=== PATIENT | male | born 1950 | race Hispanic/Latino ===

== ENCOUNTER 2019-01-14 22:39 | Inpatient (IN) | payer MEDICARE, BC ==
--- NOTE | 2019-01-14 22:49 | ED PDOC ---
Arrival/HPI - General Chief Complaint: Respiratory Distress Time Seen by Provider: 01/14/19 22:40 Historian: Patient, Spouse, EMS - History of Present Illness Narrative History of Present Illness (Text): 01/14/19 22:48 Ghulam Pierson is a 68 year old male, whose past medical history includes rib fracture, punctured pung/pneumothorax, tracheostomy, and hypertension, who presents to the ED brought in by ALS for severe respiratory distress. As per EMS, patient began experiencing progressively worsening shortness of breath 1 hours prior to arrival. Patient was placed on BiPAP and was administered Nitroglycerin IV en route to the Emergency department notes patient has a history of pneumothorax and intubation in the past. Limited HPI and ROS secondary to patient's respiratory distress. PMD: Dr. Fajardo Symptom Onset: Gradual Symptom Course: Unchanged Activities at Onset: Light Context: Home Past Medical History - Provider Review Nursing Documentation Reviewed: Yes Primary Care Provider: Alonso Fajardo - Infectious Disease Hx of Infectious Diseases: None - Cardiac Hx Cardiac Disorders: Yes Hx Hypertension: Yes Other/Comment: enlarged heart - Pulmonary Hx Respiratory Disorders: No Other/Comment: fell, rib fx x5 and pneumon/hemothorax. trach 1 year ago - Neurological Hx Neurological Disorder: No - HEENT Hx HEENT Disorder: No - Renal Hx Renal Disorder: No - Endocrine/Metabolic Hx Endocrine Disorders: Yes Hx Hypothyroidism: Yes - Hematological/Oncological Hx Blood Disorders: No - Integumentary Hx Dermatological Disorder: No - Musculoskeletal/Rheumatological Hx Musculoskeletal Disorders: No - Gastrointestinal Hx Gastrointestinal Disorders: No - Genitourinary/Gynecological Hx Genitourinary Disorders: No - Psychiatric Hx Psychophysiologic Disorder: No Hx Substance Use: No - Surgical History Hx Cataract Extraction: Yes Hx Orthopedic Surgery: Yes (bilat legs) Other/Comment: hemmorhoiectomy - Anesthesia Hx Anesthesia: Yes Hx Anesthesia Reactions: No Hx Malignant Hyperthermia: No Family/Social History - Physician Review Nursing Documentation Reviewed: Yes Family/Social History: Unknown Family HX Smoking Status: Heavy Smoker > 10 Cigarettes Daily Hx Alcohol Use: No Hx Substance Use: No Allergies/Home Meds Allergies/Adverse Reactions: Allergies No Known Allergies Allergy (Verified 01/14/19 22:45) Home Medications: Home Meds Medication Instructions Recorded Confirmed Cilostazol [Pletal] 100 mg PO BID 01/14/19 01/14/19 Furosemide [Lasix] 20 mg PO DAILY PRN 01/14/19 01/14/19 Levothyroxine Sodium [Levoxyl] 50 mcg PO DAILY 01/14/19 01/14/19 Metoprolol Succinate [Kapspargo 50 mg PO DAILY 01/14/19 01/14/19 Sprinkle] Valsartan 160 mg PO DAILY 01/14/19 01/14/19 Review of Systems - Review of Systems Systems not reviewed;Unavailable: Respiratory Distress Respiratory: SOB Physical Exam Vital Signs Reviewed: Yes Temperature: Afebrile Blood Pressure: Hypertensive Pulse: Tachycardic Respiratory Rate: Tachypneic Appearance: Positive for: Ill-Appearing, Uncomfortable Mental Status: Positive for: Alert and Oriented X 3 - Systems Exam Head: Present: Atraumatic, Normocephalic Pupils: Present: PERRL Extroacular Muscles: Present: EOMI Conjunctiva: Present: Normal Mouth: Present: Moist Mucous Membranes Neck: Present: Normal Range of Motion. No: Meningeal Signs, MIDLINE TENDERNESS, Paraspinal Tenderness Respiratory/Chest: Present: Respiratory Distress, Wheezes, Rales, Rhonchi. No: Accessory Muscle Use Cardiovascular: Present: Normal S1, S2, Tachycardic. No: Murmurs Abdomen: No: Tenderness, Distention, Peritoneal Signs Upper Extremity: Present: Normal Inspection. No: Cyanosis, Edema Lower Extremity: Present: Normal Inspection. No: Edema Neurological: Present: GCS=15, CN II-XII Intact Skin: Present: Warm, Dry, Normal Color. No: Rashes Psychiatric: Present: Alert Medical Decision Making ED Course and Treatment: 01/14/19 22:48 Impression: 68 year old male brought in for respiratory distress. Plan: -- EKG -- Chest X-ray -- Labs, ABG, cardiac enzymes, BNP, blood cultures -- Apresoline -- Duoneb -- Lasix -- Solu-medrol -- Reassess and disposition Prior Visits: Notes and results from previous visits were reviewed. Progress Notes: Pt seen on arrival to Emergency department. Pt placed on biPAP. 01/14/19 23:20 Chest X-ray reviewed, shows CHF and pneumonia. 01/14/19 23:[address] Antonio, who is aware and agrees with plan. Accepts pt in to his service. 01/14/19 23:[address] Rodrigues, acidizer, who is aware and agrees to evaluate pt for ICU admission. residential installer notified. - Scribe Statement The provider has reviewed the documentation as recorded by the Tray Hernandez Provider Scribe Attestation: All medical record entries made by the Scribe were at my direction and personally dictated by me. I have reviewed the chart and agree that the record accurately reflects my personal performance of the history, physical exam, medical decision making, and the department course for this patient. I have also personally directed, reviewed, and agree with the discharge instructions and disposition. Disposition/Present on Arrival - Present on Arrival Any Indicators Present on Arrival: No History of DVT/PE: No History of Uncontrolled Diabetes: No Urinary Catheter: No History of Decub. Ulcer: No History Surgical Site Infection Following: None - Disposition Have Diagnosis and Disposition been Completed?: Yes Diagnosis: Pneumonia, Congestive heart failure, Chronic obstructive lung disease Disposition: HOSPITALIZED Disposition Time: 23:55 Condition: CRITICAL
[2019-01-14] MEDS ORDERED: Albuterol-Ipratrop 3 mg / 0.5 (3 ml) UD ONE (22:51)
[2019-01-14] MEDS: Albuterol-Ipratrop 3 mg / 0.5 (3 ml) UD IH SCH (23:06)
[2019-01-14 23:25] LABS: ARTERIAL BLOOD GAS O2 SAT 100.5 % (95-98); ARTERIAL BLOOD GAS PCO2 54 mm/Hg (35-45); ARTERIAL BLOOD GAS PH 7.13 (7.35-7.45); ARTERIAL BLOOD GAS TCO2 19.7 mmol.L (22-28)
[2019-01-14 23:31] LABS: INR 1.03; PROTHROMBIN TIME 11.4 SECONDS (9.4-12.5)
[2019-01-14 23:32] LABS: BASO # 0.17 K/mm3 (0.0-2.0); BASO % 0.7 % (0.0-3.0); EOS # 1.2 (0.0-0.7); EOS % 4.8 % (1.5-5.0); HEMOGLOBIN 16.9 g/dL (14.0-18.0); LYMPH # 16.4 (1.2-3.4); LYMPH % 65.2 % (22.0-35.0); MEAN CORPUSCULAR HEMOGLOBIN 31.9 pg (25.0-35.0); MEAN CORPUSCULAR HGB CONC 33.2 g/dl (31.0-37.0); MEAN PLATELET VOLUME 10.4 fl (7.0-11.0); MONO % 3.8 % (1.0-6.0); PLATELET COUNT 337 10^3/uL (120.0-450.0)
[2019-01-14 23:36] LABS: ALB/GLOB RATIO 1.2 (1.1-1.8); ALBUMIN 4.9 g/dL (3.0-4.8); CALCIUM 9.5 mg/dL (8.4-10.5)
[2019-01-14] MEDS ORDERED: Piperacillin/Tazobact 3.375 gm 100 ML IVPB STA (23:40)
[2019-01-14 23:41] LABS: WHITE BLOOD COUNT 25.2 10^3/uL (4.5-11.0)
[2019-01-14 23:46] LABS: TROPONIN I 0.03 ng/mL
[2019-01-15] MEDS ORDERED: levoFLOXacin 750 mg in D5W 150 ML BAG IVPB STA (00:36)
[2019-01-15] MEDS ORDERED: Albuterol-Ipratrop 3 mg / 0.5 (3 ml) UD IH PRN (00:48)
--- NOTE | 2019-01-15 01:17 | CP.PCM.HP ---
<Scott Batista - Last Filed: 01/15/19 04:28> History of Present Illness - History of Present Illness History of Present Illness: Scott Batista, PGY1 H&P for Dr. Rodrigues cc: "shortness of breath x1 hour" Patient is a 68 year old male, whose PMHx includes Pneumothorax due to trauma, tracheostomy (1 year ago), PVD (Previous MRA on 06/2018 showing proximal 2/3 occlusion of Left SFA), Hypertension, Hypothyroidism who presents to the ED from home for shortness of breath 1 hour prior to presentation. Patient was in bed when his shortness of breath began. Denies orthopnea but does endorse occasional swelling in his legs. Although, at this time he says his legs are not swollen. He does have a chronic cough but states that it has been worse lately. Patient denies chest pain, abdominal pain, headache, vision change, fever, chills, nausea, vomiting, diarrhea, change in bowel/bladder. No sick contacts. No recent travel. Denies unintentional weight loss, night sweats, fatigue. was present at bedside to help with history given that patient was feeling short of breath. No recent hospitalizations. A full 12 point ROS was conducted and unremarkable except as stated above. PMD: Dr. Fajardo PMHx: Pneumothorax due to trauma, tracheostomy (1 year ago), PVD (Previous MRA on 06/2018 showing proximal 2/3 occlusion of Left SFA), Hypertension, Hypothyroidism PSHx: tracheostomy (1 year ago), cataracts Meds: Cilostazol 100mg BID, Metoprolol succinate 50mg daily, Lasix 20mg daily, Valsartan 160 mg daily, Levothyroxine 50 mcg daily Allergies: NKDA SocialHx: current smoker, 1 PPD x50 years. Former alcoholic, but quit drinking 5 months ago. Patient lives with at home in [place]. FamHx: mother/brother have diabetes. No other significant family history. Present on Admission - Present on Admission Any Indicators Present on Admission: No Review of Systems - Review of Systems All systems: reviewed and no additional remarkable complaints except (as per HPI .) Past Patient History - Infectious Disease Hx of Infectious Diseases: None - Past Social History Smoking Status: Heavy Smoker > 10 Cigarettes Daily - CARDIAC Hx Cardiac Disorders: Yes Hx Hypertension: Yes Other/Comment: enlarged heart - PULMONARY Hx Respiratory Disorders: No Other/Comment: fell, rib fx x5 and pneumon/hemothorax. trach 1 year ago - NEUROLOGICAL Hx Neurological Disorder: No - HEENT Hx HEENT Problems: No - RENAL Hx Chronic Kidney Disease: No - ENDOCRINE/METABOLIC Hx Endocrine Disorders: Yes Hx Hypothyroidism: Yes - HEMATOLOGICAL/ONCOLOGICAL Hx Blood Disorders: No - INTEGUMENTARY Hx Dermatological Problems: No - MUSCULOSKELETAL/RHEUMATOLOGICAL Hx Musculoskeletal Disorders: No - GASTROINTESTINAL Hx Gastrointestinal Disorders: No - GENITOURINARY/GYNECOLOGICAL Hx Genitourinary Disorders: No - PSYCHIATRIC Hx Psychophysiologic Disorder: No Hx Substance Use: No - SURGICAL HISTORY Hx Cataract Extraction: Yes Hx Orthopedic Surgery: Yes (bilat legs) Other/Comment: hemmorhoiectomy - ANESTHESIA Hx Anesthesia: Yes Hx Anesthesia Reactions: No Hx Malignant Hyperthermia: No Meds Allergies/Adverse Reactions: Allergies Allergy/AdvReac Type Severity Reaction Status Date / Time No Known Allergies Allergy Verified 01/14/19 22:45 Physical Exam - Constitutional Appears: Other (Mild Distress with some labored breathing) - Head Exam Head Exam: ATRAUMATIC, NORMAL INSPECTION, NORMOCEPHALIC - Eye Exam Eye Exam: EOMI, Normal appearance Pupil Exam: NORMAL ACCOMODATION - ENT Exam ENT Exam: Mucous Membranes Moist - Respiratory Exam Respiratory Exam: Accessory Muscle Use, Rales (Diffuse crackles at bilateral lungs. ). absent: Chest Wall Tenderness, Decreased Breath Sounds, Rhonchi, Wheezes, Stridor - Cardiovascular Exam Cardiovascular Exam: Tachycardia, +S1, +S2 - GI/Abdominal Exam GI & Abdominal Exam: Normal Bowel Sounds, Soft. absent: Distended, Firm, Guarding, Organomegaly, Rebound, Rigid, Tenderness - Extremities Exam Extremities exam: Positive for: full ROM, normal capillary refill, normal inspection, pedal pulses present. Negative for: calf tenderness, joint swelling, pedal edema Additional comments: No pitting edema in lower extremities - Back Exam Back exam: NORMAL INSPECTION - Neurological Exam Neurological exam: Alert, CN II-XII Intact, Oriented x3 - Psychiatric Exam Psychiatric exam: Normal Affect, Normal Mood - Skin Skin Exam: Dry, Intact, Normal Color, Warm Results - Vital Signs Recent Vital Signs: Last Vital Signs Temp Pulse 128 H 01/14/19 23:53 Resp 35 H 01/14/19 22:52 BP 145/99 H 05/22/19 23:53 Pulse Ox 97 01/14/19 22:52 - Labs Result Diagrams: 01/14/19 23:14 01/14/19 23:14 Labs: Laboratory Results - last 24 hr 01/14/19 01/14/19 01/14/19 23:14 23:14 23:14 WBC 25.2 H* RBC 5.30 Hgb 16.9 Hct 50.9 MCV 96.0 MCH 31.9 MCHC 33.2 RDW 13.0 Plt Count 337 MPV 10.4 Neut % (Auto) 25.5 L Lymph % (Auto) 65.2 H O'Brien % (Auto) 3.8 Eos % (Auto) 4.8 Baso % (Auto) 0.7 Lymph # (Auto) 16.4 H O'Brien # (Auto) 1.0 H Eos # (Auto) 1.2 H Baso # (Auto) 0.17 Absolute Neuts (auto) 6.45 PT 11.4 INR 1.03 APTT 35.0 pCO2 pO2 HCO3 ABG pH ABG Total CO2 ABG O2 Saturation ABG Base Excess ABG Potassium Glucose Lactate FiO2 Crit Value Called To Crit Value Called By Blood Gas Notified Time Sodium 144 Potassium 4.6 Chloride 109 H Carbon Dioxide 15 L Anion Gap 25 H BUN 16 Creatinine 1.9 H Est GFR ( Amer) 43 Est GFR (Non-Af Amer) 35 Random Glucose 255 H Calcium 9.5 Magnesium 2.4 H Total Bilirubin 0.7 AST 45 ALT 21 Alkaline Phosphatase 84 Lactate Dehydrogenase 640 Total Creatine Kinase 154 Troponin I 0.03 NT-Pro-B Natriuret Pep 1320 H Total Protein 8.9 H Albumin 4.9 H Globulin 4.0 Albumin/Globulin Ratio 1.2 Arterial Blood Potassium 01/14/19 23:19 WBC RBC Hgb Hct MCV MCH MCHC RDW Plt Count MPV Neut % (Auto) Lymph % (Auto) O'Brien % (Auto) Eos % (Auto) Baso % (Auto) Lymph # (Auto) O'Brien # (Auto) Eos # (Auto) Baso # (Auto) Absolute Neuts (auto) PT INR APTT pCO2 54 H pO2 387.0 H HCO3 18.0 L ABG pH 7.13 L* ABG Total CO2 19.7 L ABG O2 Saturation 100.5 H ABG Base Excess -11.4 L ABG Potassium 3.7 Glucose 229 H Lactate 3.1 H FiO2 100.0 Crit Value Called To Dr yoo Crit Value Called By [facility] Blood Gas Notified Time 2325 Sodium 136.0 Potassium Chloride 110.0 H Carbon Dioxide Anion Gap BUN Creatinine Est GFR ( Amer) Est GFR (Non-Af Amer) Random Glucose Calcium Magnesium Total Bilirubin AST ALT Alkaline Phosphatase Lactate Dehydrogenase Total Creatine Kinase Troponin I NT-Pro-B Natriuret Pep Total Protein Albumin Globulin Albumin/Globulin Ratio Arterial Blood Potassium 3.7 Assessment & Plan - Assessment and Plan (Free Text) Assessment: Patient is a 68 year old male, whose PMHx includes Pneumothorax due to trauma, tracheostomy (1 year ago), PVD (Previous MRA on 06/2018 showing proximal 2/3 occlusion of Left SFA), Hypertension, Hypothyroidism who presents to the ED from home for shortness of breath 1 hour prior to presentation. Plan: Anion-Gap Metabolic Acidosis 2/2 Lactic Acidosis 2/2 Sepsis from CAP with Associated Respiratory Acidosis 2/2 Underlying COPD Exacerbation - Anion Gap 20, lactate on abg elevated at 3.1, will obtain repeat abg to trend lactate - SIRS criteria met (leukocytosis with wbc 25, tachycardia, tachypnea) with suspected source, PNA - CXR: mild pulmonary edema suggests CHF with likely superimposed PNA at the RML and RLL - ABG on admission: 7.13/54/387, HCO3 18 (BiPAP settings: IPAP/EPAP 18/8, RR 15, 100% FiO2) - will obtain repeat ABG - c/w BiPAP at this time - Although sepsis criteria met, patient is not in shock and given CHF presentation, will hold off on fluid administration at this time. - azithromycin and rocephin for CAP coverage - duonebs prn and caden - blood cx, urine cx - UA - procalcitonin - Legionella - Troponin 0.3, trend serial trops; elevation in troponins may be secondary to demand ischemia - EKG: sinus tachycardia, HR 141. Evidence of bi-atrial enlargement suggestive of pulmonary disease. - ID consulted - Given 50 pack year smoking hx, likely has underlying COPD although no official diagnosis Suspected CHF - Lasix 20mg IVP daily - duonebs caden and prn - BNP elevated, 1320 - Echo (no prior echo noted) - Strict ins/outs - monitor daily weights - Cardiology consulted JANEY 2/2 Demand Ischemia - Cr 1.9 (baseline 1.3) - Hold home medication Valsartan at this time - Avoid nephrotoxic agents - Nephro consulted HTN - resume home med Metroprolol Succinate 50mg daily - monitor blood pressure frequently - Maintain MAP > 65 Hypothyroidism - resume home med Levothyroxine 50 mcg daily PVD - resume home med Cilostazol 100mg BID ppx: - lovenox - ptx Diet: HHD Dispo: Given patient's respiratory status and labored breathing, will upgrade to ICU. If ABG and clinical status does not improve, along with poor work of breathing, may consider intubation but unlikely. Will monitor closely for now. Case was discussed and reviewed with Attending Physician, Dr. Rodrigues. <Aurelia Rodrigues - Last Filed: 01/15/19 04:43> Results - Vital Signs Recent Vital Signs: Last Vital Signs Temp 97.7 F 01/15/19 02:04 Pulse 111 H 01/15/19 04:00 Resp 43 H 01/15/19 02:04 BP 145/99 H 01/15/19 01:39 Pulse Ox 100 01/15/19 01:39 - Labs Result Diagrams: 01/14/19 23:14 01/14/19 23:14 Labs: Laboratory Results - last 24 hr 01/14/19 01/14/19 01/14/19 23:14 23:14 23:14 WBC 25.2 H* RBC 5.30 Hgb 16.9 Hct 50.9 MCV 96.0 MCH 31.9 MCHC 33.2 RDW 13.0 Plt Count 337 MPV 10.4 Neut % (Auto) 25.5 L Lymph % (Auto) 65.2 H O'Brien % (Auto) 3.8 Eos % (Auto) 4.8 Baso % (Auto) 0.7 Lymph # (Auto) 16.4 H O'Brien # (Auto) 1.0 H Eos # (Auto) 1.2 H Baso # (Auto) 0.17 Absolute Neuts (auto) 6.45 Neutrophils % (Manual) 26 L Band Neutrophils % 2 Lymphocytes % (Manual) 60 H Atypical Lymphs % 1 H Monocytes % (Manual) 4 Eosinophils % (Manual) 5 H Basophils % (Manual) 1 Myelocytes % 1 Differential Comment Cancelled Platelet Evaluation Normal PT 11.4 INR 1.03 APTT 35.0 pCO2 pO2 HCO3 ABG pH ABG Total CO2 ABG O2 Saturation ABG Base Excess ABG Potassium Glucose Lactate FiO2 Crit Value Called To Crit Value Called By Blood Gas Notified Time Sodium 144 Potassium 4.6 Chloride 109 H Carbon Dioxide 15 L Anion Gap 25 H BUN 16 Creatinine 1.9 H Est GFR ( Amer) 43 Est GFR (Non-Af Amer) 35 Random Glucose 255 H Calcium 9.5 Magnesium 2.4 H Total Bilirubin 0.7 AST 45 ALT 21 Alkaline Phosphatase 84 Lactate Dehydrogenase 640 Total Creatine Kinase 154 Troponin I 0.03 NT-Pro-B Natriuret Pep 1320 H Total Protein 8.9 H Albumin 4.9 H Globulin 4.0 Albumin/Globulin Ratio 1.2 Arterial Blood Potassium 01/14/19 01/15/19 23:19 03:15 WBC RBC Hgb Hct MCV MCH MCHC RDW Plt Count MPV Neut % (Auto) Lymph % (Auto) O'Brien % (Auto) Eos % (Auto) Baso % (Auto) Lymph # (Auto) O'Brien # (Auto) Eos # (Auto) Baso # (Auto) Absolute Neuts (auto) Neutrophils % (Manual) Band Neutrophils % Lymphocytes % (Manual) Atypical Lymphs % Monocytes % (Manual) Eosinophils % (Manual) Basophils % (Manual) Myelocytes % Differential Comment Platelet Evaluation PT INR APTT pCO2 54 H 31 L pO2 387.0 H 106.0 H HCO3 18.0 L 17.9 L ABG pH 7.13 L* 7.37 ABG Total CO2 19.7 L 18.9 L ABG O2 Saturation 100.5 H 99.5 H ABG Base Excess -11.4 L -6.2 L ABG Potassium 3.7 3.0 L Glucose 229 H 129 H Lactate 3.1 H 1.4 FiO2 100.0 50.0 Crit Value Called To Dr yoo Crit Value Called By [facility] Blood Gas Notified Time 2325 Sodium 136.0 143.0 Potassium Chloride 110.0 H 114.0 H Carbon Dioxide Anion Gap BUN Creatinine Est GFR ( Amer) Est GFR (Non-Af Amer) Random Glucose Calcium Magnesium Total Bilirubin AST ALT Alkaline Phosphatase Lactate Dehydrogenase Total Creatine Kinase Troponin I NT-Pro-B Natriuret Pep Total Protein Albumin Globulin Albumin/Globulin Ratio Arterial Blood Potassium 3.7 3.0 L Attending/Attestation - Attestation I have personally seen and examined this patient.: Yes I have fully participated in the care of the patient.: Yes I have reviewed all pertinent clinical information: Yes Notes (Text): 01/15/19 04:34 Patient was seen when he was in the ER . Medical record was reviewed. Agree with history, physical examination, assessment and plan. CCT evaluation began:12:30AM. CCT evaluation ended :01:00AM.
[2019-01-15 02:42] VITALS: BMI 24.9
[2019-01-15 03:00] LABS: ATYPICAL LYMPHOCYTE 1 % (0.0-0.0); BAND 2 % (0-2); BASOPHIL 1 % (0.0-1.0); EOSINOPHIL 5 % (0.0-3.0); LYMPHOCYTE 60 % (22.0-35.0); MONOCYTE 4 % (1.0-6.0); MYELOCYTE 1 %; NEUTROPHIL 26 % (50.0-70.0)
[2019-01-15 03:01] LABS: PLATELET ESTIMATE NORMAL (NORMAL)
[2019-01-15] MEDS: Albuterol-Ipratrop 3 mg / 0.5 (3 ml) UD IH SCH ×4 (03:10→20:34)
--- NOTE | 2019-01-15 03:17 | PCM.SEPTIC ---
<Scott Batista - Last Filed: 01/15/19 03:15> Sepsis Progress Note - Reassessment Type Date of Evaluation: 01/15/19 Time of Evaluation: 02:45 Reassessment Type: Non-invasive reassessment - Non Invasive Reassessment Were the most recent vital sign reviewed: Yes Vital Sign (Latest): Temp Pulse Resp BP Pulse Ox 97.7 F 114 H 43 H 145/99 H 100 01/15/19 02:04 01/15/19 02:04 01/15/19 02:04 01/15/19 01:39 01/15/19 01:39 Cardiovascular: Yes: Tachycardia Respiratory: Yes: Crackles. No: Accessory Muscle Use Capillary Refill: Normal (Less than 2 sec) Pulses: Normal Radial, Normal Dorsalis Pedis, Normal Posterior Tibialis Skin: Warm, Dry <Aurelia Rodrigues - Last Filed: 01/15/19 04:16> Sepsis Progress Note - Non Invasive Reassessment Vital Sign (Latest): Temp Pulse Resp BP Pulse Ox 97.7 F 111 H 43 H 145/99 H 100 01/15/19 02:04 01/15/19 04:00 01/15/19 02:04 01/15/19 01:39 01/15/19 01:39 Attending/Attestation - Attestation I have personally seen and examined this patient.: Yes I have fully participated in the care of the patient.: Yes I have reviewed all pertinent clinical information, including history, physical exam and plan: Yes
[2019-01-15 03:22] LABS: ARTERIAL BLOOD GAS HCO3 17.9 mmol/L (21-28); ARTERIAL BLOOD GAS O2 SAT 99.5 % (95-98); ARTERIAL BLOOD GAS PCO2 31 mm/Hg (35-45); ARTERIAL BLOOD GAS PH 7.37 (7.35-7.45); ARTERIAL BLOOD GAS TCO2 18.9 mmol.L (22-28)
[2019-01-15 04:34] LABS: URINE BILIRUBIN NEGATIVE (NEGATIVE); URINE BLOOD SMALL (NEGATIVE); URINE GLUCOSE (UA) NEGATIVE (NEGATIVE); URINE LEUKOCYTE ESTERASE NEGATIVE Leu/uL (NEGATIVE); URINE PROTEIN 100 mg/dL (<30 mg/dL); URINE UROBILINOGEN 0.2 E.U./dL (<1 E.U./dL)
[2019-01-15 04:39] LABS: URINE APPEARANCE SL CLOUDY (CLEAR); URINE COLOR YELLOW (YELLOW)
[2019-01-15 05:32] LABS: URINE WBC 0 - 2 /hpf (0-6)
[2019-01-15 05:35] LABS: URINE AMORPHOUS SEDIMENT FEW /hpf; URINE FINE GRANULAR CAST 0 - 2 /hpf
[2019-01-15] MEDS ORDERED: Pantoprazole 40 mg EC Tab PO SCH (06:00)
[2019-01-15] MEDS: Levothyroxine 50 MCG TAB PO SCH (06:33)
[2019-01-15 07:22] LABS: HEMOGLOBIN 16.8 g/dL (14.0-18.0); MEAN CORPUSCULAR HEMOGLOBIN 31.8 pg (25.0-35.0); MEAN CORPUSCULAR HGB CONC 33.8 g/dl (31.0-37.0); MEAN PLATELET VOLUME 10.3 fl (7.0-11.0); RBC 5.29 10^6/uL (3.5-6.1); RED CELL DISTRIBUTION WIDTH 13.1 % (11.5-14.5); WHITE BLOOD COUNT 14.5 10^3/uL (4.5-11.0)
--- NOTE | 2019-01-15 08:26 | RAD ---
Date of service: 01/14/2019 HISTORY: sob COMPARISON: No prior. TECHNIQUE: 1 view obtained. FINDINGS: LUNGS: There is a diffuse infiltrate in the right lung consistent with pneumonia. PLEURA: No significant pleural effusion identified, no pneumothorax apparent. CARDIOVASCULAR: Aortic calcification Normal cardiac size. No pulmonary vascular congestion. OSSEOUS STRUCTURES: No significant abnormalities. VISUALIZED UPPER ABDOMEN: Normal. OTHER FINDINGS: None. IMPRESSION: Diffuse infiltrate in the right lung consistent with pneumonia
--- NOTE | 2019-01-15 08:47 | CP.PCM.CON ---
<Parveen Aparicio R - Last Filed: 01/15/19 12:09> History of Present Illness - History of Present Illness History of Present Illness: PGY-2 ICU consult note for Dr Maxwell Mr Pierson is a 68 year old male, whose PMHx includes Pneumothorax due to trauma, tracheostomy (1 year ago), PVD (Previous MRA on 06/2018 showing proximal 2/3 occlusion of Left SFA), Hypertension, Hypothyroidism who presents to the ED brought in by ALS for severe respiratory distress. He was placed on BiPAP and was administered Nitroglycerin IV en route to the ED. He stated his shortness of breath began 1 hour prior to presentation, patient was in bed when his shortness of breath began. Denies orthopnea but does endorse occasional swelling in his legs although he stated his legs at this time are not swollen. He does have a chronic cough but states that it has been worse lately. Patient denies chest pain, abdominal pain, fever, chills, nausea, vomiting, diarrhea. No sick contacts. No recent travel. No recent hospitalizations. Some hx collected from chart review. PMD: Dr. Fajardo PMHx: Pneumothorax due to trauma, tracheostomy (1 year ago), PVD (Previous MRA on 06/2018 showing proximal 2/3 occlusion of Left SFA), Hypertension, Hypothyroidism PSHx: tracheostomy (1 year ago), cataracts Meds: Cilostazol 100mg BID, Metoprolol succinate 50mg daily, Lasix 20mg daily, Valsartan 160 mg daily, Levothyroxine 50 mcg daily Allergies: NKDA SocialHx: current smoker, 1 PPD x50 years. Former alcoholic, but quit drinking 5 months ago. Patient lives with at home in [place]. FamHx: mother/brother have diabetes. No other significant family history. Review of Systems - Review of Systems All systems: reviewed and no additional remarkable complaints except (as stated in HPI) Past Patient History - Infectious Disease Hx of Infectious Diseases: None - Past Social History Smoking Status: Heavy Smoker > 10 Cigarettes Daily - CARDIAC Hx Cardiac Disorders: Yes Hx Hypertension: Yes Other/Comment: enlarged heart - PULMONARY Hx Respiratory Disorders: No Other/Comment: fell, rib fx x5 and pneumon/hemothorax. trach 1 year ago - NEUROLOGICAL Hx Neurological Disorder: No - HEENT Hx HEENT Problems: No - RENAL Hx Chronic Kidney Disease: No - ENDOCRINE/METABOLIC Hx Endocrine Disorders: Yes Hx Hypothyroidism: Yes - HEMATOLOGICAL/ONCOLOGICAL Hx Blood Disorders: No - INTEGUMENTARY Hx Dermatological Problems: No - MUSCULOSKELETAL/RHEUMATOLOGICAL Hx Musculoskeletal Disorders: No - GASTROINTESTINAL Hx Gastrointestinal Disorders: No - GENITOURINARY/GYNECOLOGICAL Hx Genitourinary Disorders: No - PSYCHIATRIC Hx Psychophysiologic Disorder: No Hx Substance Use: No - SURGICAL HISTORY Hx Cataract Extraction: Yes Hx Orthopedic Surgery: Yes (bilat legs) Other/Comment: hemmorhoiectomy - ANESTHESIA Hx Anesthesia: Yes Hx Anesthesia Reactions: No Hx Malignant Hyperthermia: No Meds Allergies/Adverse Reactions: Allergies Allergy/AdvReac Type Severity Reaction Status Date / Time No Known Allergies Allergy Verified 01/14/19 22:45 - Medications Medications: Current Medications Albuterol/Ipratropium (Duoneb 3 Mg/0.5 Mg (3 Ml) Ud) 3 ml IH Q4H PRN PRN Reason: Shortness of Breath Albuterol/Ipratropium (Duoneb 3 Mg/0.5 Mg (3 Ml) Ud) 3 ml IH [id number] [facility] Last Admin: 01/15/19 07:52 Dose: 3 ml Cilostazol (Pletal) 100 mg PO BID [facility] Heparin Sodium (Porcine) (Heparin) 5,000 units SC Q8 [facility]; Protocol Azithromycin 250 mg/ Sodium (Chloride) 250 mls @ 167 mls/hr IVPB DAILY [facility]; Protocol Ceftriaxone Sodium (Rocephin 1 Gram Ivpb) 1 gm in 100 mls @ 100 mls/hr IVPB DAILY [facility]; Protocol Levothyroxine Sodium (Synthroid) 50 mcg PO 0600 [facility] Last Admin: 01/15/19 06:33 Dose: 50 mcg Metoprolol Succinate (Toprol Xl) 50 mg PO DAILY [facility] Pantoprazole Sodium (Protonix Ec Tab) 40 mg PO 0600 [facility] Last Admin: 01/15/19 06:33 Dose: 40 mg Physical Exam - Constitutional Appears: Well, Non-toxic, No Acute Distress - Head Exam Head Exam: ATRAUMATIC, NORMAL INSPECTION - Eye Exam Eye Exam: EOMI, Normal appearance, PERRL. absent: Scleral icterus Pupil Exam: NORMAL ACCOMODATION - ENT Exam ENT Exam: Mucous Membranes Moist - Neck Exam Neck exam: Positive for: Normal Inspection - Respiratory Exam Respiratory Exam: Wheezes, NORMAL BREATHING PATTERN. absent: Chest Wall Tenderness, Clear to Auscultation Bilateral - Cardiovascular Exam Cardiovascular Exam: Tachycardia, REGULAR RHYTHM, +S1, +S2. absent: JVD, Systolic Murmur - GI/Abdominal Exam GI & Abdominal Exam: Normal Bowel Sounds, Soft. absent: Distended, Firm, Tenderness - Extremities Exam Extremities exam: Positive for: normal capillary refill, pedal edema, pedal pulses present - Neurological Exam Neurological exam: Alert, CN II-XII Intact, Oriented x3 - Psychiatric Exam Psychiatric exam: Normal Affect, Normal Mood - Skin Skin Exam: Intact, Normal Color, Warm Results - Vital Signs Recent Vital Signs: Last Vital Signs Temp 97.8 F 01/15/19 06:00 Pulse 111 H 01/15/19 04:00 Resp 43 H 01/15/19 02:04 BP 145/99 H 01/15/19 01:39 Pulse Ox 100 01/15/19 01:39 - Labs Result Diagrams: 01/15/19 07:15 01/14/19 23:14 Labs: Laboratory Results - last 24 hr 01/14/19 01/14/19 01/14/19 23:14 23:14 23:14 WBC 25.2 H* RBC 5.30 Hgb 16.9 Hct 50.9 MCV 96.0 MCH 31.9 MCHC 33.2 RDW 13.0 Plt Count 337 MPV 10.4 Neut % (Auto) 25.5 L Lymph % (Auto) 65.2 H [place] % (Auto) 3.8 Eos % (Auto) 4.8 Baso % (Auto) 0.7 Lymph # (Auto) 16.4 H [place] # (Auto) 1.0 H Eos # (Auto) 1.2 H Baso # (Auto) 0.17 Absolute Neuts (auto) 6.45 Neutrophils % (Manual) 26 L Band Neutrophils % 2 Lymphocytes % (Manual) 60 H Atypical Lymphs % 1 H Monocytes % (Manual) 4 Eosinophils % (Manual) 5 H Basophils % (Manual) 1 Myelocytes % 1 Differential Comment Cancelled Platelet Evaluation Normal PT 11.4 INR 1.03 APTT 35.0 pCO2 pO2 HCO3 ABG pH ABG Total CO2 ABG O2 Saturation ABG Base Excess ABG Potassium Glucose Lactate FiO2 Crit Value Called To Crit Value Called By Blood Gas Notified Time Sodium 144 Potassium 4.6 Chloride 109 H Carbon Dioxide 15 L Anion Gap 25 H BUN 16 Creatinine 1.9 H Est GFR ( Amer) 43 Est GFR (Non-Af Amer) 35 Random Glucose 255 H Calcium 9.5 Magnesium 2.4 H Total Bilirubin 0.7 AST 45 ALT 21 Alkaline Phosphatase 84 Lactate Dehydrogenase 640 Total Creatine Kinase 154 Troponin I 0.03 NT-Pro-B Natriuret Pep 1320 H Total Protein 8.9 H Albumin 4.9 H Globulin 4.0 Albumin/Globulin Ratio 1.2 TSH 3rd Generation Arterial Blood Potassium Urine Color Urine Appearance Urine pH Ur Specific [place] Urine Protein Urine Glucose (UA) Urine Ketones Urine Blood Urine Nitrate Urine Bilirubin Urine Urobilinogen Ur Leukocyte Esterase Urine RBC Urine WBC Ur Epithelial Cells Amorphous Sediment Urine Bacteria Fine Granular Casts 01/14/19 01/15/19 01/15/19 23:19 03:15 03:50 WBC RBC Hgb Hct MCV MCH MCHC RDW Plt Count MPV Neut % (Auto) Lymph % (Auto) [place] % (Auto) Eos % (Auto) Baso % (Auto) Lymph # (Auto) [place] # (Auto) Eos # (Auto) Baso # (Auto) Absolute Neuts (auto) Neutrophils % (Manual) Band Neutrophils % Lymphocytes % (Manual) Atypical Lymphs % Monocytes % (Manual) Eosinophils % (Manual) Basophils % (Manual) Myelocytes % Differential Comment Platelet Evaluation PT INR APTT pCO2 54 H 31 L pO2 387.0 H 106.0 H HCO3 18.0 L 17.9 L ABG pH 7.13 L* 7.37 ABG Total CO2 19.7 L 18.9 L ABG O2 Saturation 100.5 H 99.5 H ABG Base Excess -11.4 L -6.2 L ABG Potassium 3.7 3.0 L Glucose 229 H 129 H Lactate 3.1 H 1.4 FiO2 100.0 50.0 Crit Value Called To Dr yoo Crit Value Called By [facility] Blood Gas Notified Time 2325 Sodium 136.0 143.0 Potassium Chloride 110.0 H 114.0 H Carbon Dioxide Anion Gap BUN Creatinine Est GFR ( Amer) Est GFR (Non-Af Amer) Random Glucose Calcium Magnesium Total Bilirubin AST ALT Alkaline Phosphatase Lactate Dehydrogenase Total Creatine Kinase Troponin I NT-Pro-B Natriuret Pep Total Protein Albumin Globulin Albumin/Globulin Ratio TSH 3rd Generation Arterial Blood Potassium 3.7 3.0 L Urine Color Yellow Urine Appearance Sl cloudy Urine pH 6.0 Ur Specific [place] 1.020 Urine Protein 100 H Urine Glucose (UA) Negative Urine Ketones Negative Urine Blood Small H Urine Nitrate Negative Urine Bilirubin Negative Urine Urobilinogen 0.2 Ur Leukocyte Esterase Negative Urine RBC 5 - 10 H Urine WBC 0 - 2 Ur Epithelial Cells 1 - 3 Amorphous Sediment Few Urine Bacteria None Fine Granular Casts 0 - 2 01/15/19 01/15/19 01/15/19 07:15 07:15 07:15 WBC 14.5 H D RBC 5.29 Hgb 16.8 Hct 49.7 MCV 94.0 MCH 31.8 MCHC 33.8 RDW 13.1 Plt Count 235 MPV 10.3 Neut % (Auto) Lymph % (Auto) [place] % (Auto) Eos % (Auto) Baso % (Auto) Lymph # (Auto) [place] # (Auto) Eos # (Auto) Baso # (Auto) Absolute Neuts (auto) Neutrophils % (Manual) Band Neutrophils % Lymphocytes % (Manual) Atypical Lymphs % Monocytes % (Manual) Eosinophils % (Manual) Basophils % (Manual) Myelocytes % Differential Comment Platelet Evaluation PT INR APTT pCO2 pO2 HCO3 ABG pH ABG Total CO2 ABG O2 Saturation ABG Base Excess ABG Potassium Glucose Lactate FiO2 Crit Value Called To Crit Value Called By Blood Gas Notified Time Sodium Potassium Chloride Carbon Dioxide Anion Gap BUN Creatinine Est GFR ( Amer) Est GFR (Non-Af Amer) Random Glucose Calcium Magnesium Total Bilirubin AST ALT Alkaline Phosphatase Lactate Dehydrogenase Total Creatine Kinase Troponin I 0.37 H* D NT-Pro-B Natriuret Pep Total Protein Albumin Globulin Albumin/Globulin Ratio TSH 3rd Generation 3.14 Arterial Blood Potassium Urine Color Urine Appearance Urine pH Ur Specific [place] Urine Protein Urine Glucose (UA) Urine Ketones Urine Blood Urine Nitrate Urine Bilirubin Urine Urobilinogen Ur Leukocyte Esterase Urine RBC Urine WBC Ur Epithelial Cells Amorphous Sediment Urine Bacteria Fine Granular Casts Assessment & Plan - Assessment and Plan (Free Text) Plan: Patient is a 68 year old male, whose PMHx includes Pneumothorax due to trauma, tracheostomy (1 year ago), PVD (Previous MRA on 06/2018 showing proximal 2/3 occlusion of Left SFA), Hypertension, Hypothyroidism brought in by EMS for respiratory distress: Pulmonary: #CAP, #COPD, #50 Pack Year Smoking Hx, #Hx of Pneumothorax due to trauma, #Hx of trachestomy - Initial CXR: mild pulmonary edema suggests CHF with likely superimposed PNA at the RML and RLL - ABG on admission: 7.13/54/387, HCO3 18 (BiPAP settings: IPAP/EPAP 18/8, RR 15, 100% FiO2) - Repeat ABG 7.37/31/106/18 on 50% - Currently breathing comfortably and saturating 90-92% on NC 3L - Duoneb q6h caden and q4h prn - Prednisone 40mg po qd for 5 days - F/u CT chest w/o contrast Cardiovascular: #NSTEMI, #PVD, #HTN - Cardiology consulted, Dr Castanon - Trop 0.03 -> 0.37 - Probnp 1320 - Cont home med cilostazol 100mg po bid, toprol XL 50mg po qd - Start aspirin 81mg po qd, Lipitor 20mg po din - Holding home ARB due to JANEY - f/u echo, LE duplex b/l, lipid panel ID: #CAP, #Leukocytosis, Improving - ID consulted, Dr Pascal - Initial CXR: mild pulmonary edema suggests CHF with likely superimposed PNA at the RML and RLL - ceftriaxone 1g ivp qd (started 01/15) and azithromycin 250mg ivp qd (started 01/15) - f/u procalc, legionella ag urine, blood cx, urine cx, sputum cx Endocrine: #Hypothryoidism - Cont home med synthroid 50 mcg po qd - f/u [id number] Renal: #JANEY - unknown baseline Cr - LR 100 cc/hr - f/u random urine Na, urine osmolality, random urine total protein PPx: heparin 5000u sc q8h, protonix 40mg po qd, heart healthy diet Dispo: If vitals remain stable, possible transfer to telemetry later today. Seen and discussed with Dr Maxwell <Oneyda Maxwell - Last Filed: 01/15/19 15:35> Meds - Medications Medications: Current Medications Albuterol/Ipratropium (Duoneb 3 Mg/0.5 Mg (3 Ml) Ud) 3 ml IH Q4H PRN PRN Reason: Shortness of Breath Albuterol/Ipratropium (Duoneb 3 Mg/0.5 Mg (3 Ml) Ud) 3 ml IH [id number] [facility] Last Admin: 01/15/19 13:04 Dose: 3 ml Aspirin (Ecotrin) 81 mg PO DAILY [facility] Last Admin: 01/15/19 14:52 Dose: 81 mg Atorvastatin Calcium (Lipitor) 20 mg PO DIN [facility] Cilostazol (Pletal) 100 mg PO BID [facility] Last Admin: 01/15/19 10:29 Dose: 100 mg Heparin Sodium (Porcine) (Heparin) 5,000 units SC Q8 [facility]; Protocol Last Admin: 01/15/19 14:52 Dose: 5,000 units Azithromycin 250 mg/ Sodium (Chloride) 250 mls @ 167 mls/hr IVPB DAILY [facility]; Protocol Last Admin: 01/15/19 10:28 Dose: 167 mls/hr Ceftriaxone Sodium (Rocephin 1 Gram Ivpb) 1 gm in 100 mls @ 100 mls/hr IVPB DAILY [facility]; Protocol Last Admin: 01/15/19 09:30 Dose: 100 mls/hr Lactated Ringer's (Lactated Ringer's) 1,000 mls @ 100 mls/hr IV .Q10H [facility] Stop: 01/16/19 06:14 Last Admin: 01/15/19 10:30 Dose: 100 mls/hr Levothyroxine Sodium (Synthroid) 50 mcg PO 0600 [facility] Last Admin: 01/15/19 06:33 Dose: 50 mcg Losartan Potassium (Cozaar) 100 mg PO DAILY [facility] Metoprolol Succinate (Toprol Xl) 50 mg PO DAILY [facility] Last Admin: 01/15/19 10:29 Dose: 50 mg Prednisone (Prednisone Tab) 40 mg PO DAILY [facility] Stop: 01/19/19 11:30 Last Admin: 01/15/19 14:51 Dose: 40 mg Results - Vital Signs Recent Vital Signs: Last Vital Signs Temp 97.8 F 01/15/19 06:00 Pulse 104 H 01/15/19 14:00 Resp 28 H 01/15/19 14:00 BP 128/85 01/15/19 14:00 Pulse Ox 91 L 01/15/19 14:00 - Labs Result Diagrams: 01/15/19 07:15 01/14/19 23:14 Labs: Laboratory Results - last 24 hr 01/14/19 01/14/19 01/14/19 23:14 23:14 23:14 WBC 25.2 H* RBC 5.30 Hgb 16.9 Hct 50.9 MCV 96.0 MCH 31.9 MCHC 33.2 RDW 13.0 Plt Count 337 MPV 10.4 Neut % (Auto) 25.5 L Lymph % (Auto) 65.2 H [place] % (Auto) 3.8 Eos % (Auto) 4.8 Baso % (Auto) 0.7 Lymph # (Auto) 16.4 H [place] # (Auto) 1.0 H Eos # (Auto) 1.2 H Baso # (Auto) 0.17 Absolute Neuts (auto) 6.45 Neutrophils % (Manual) 26 L Band Neutrophils % 2 Lymphocytes % (Manual) 60 H Atypical Lymphs % 1 H Monocytes % (Manual) 4 Eosinophils % (Manual) 5 H Basophils % (Manual) 1 Myelocytes % 1 Differential Comment Cancelled Platelet Evaluation Normal PT 11.4 INR 1.03 APTT 35.0 pCO2 pO2 HCO3 ABG pH ABG Total CO2 ABG O2 Saturation ABG O2 Content ABG Base Excess ABG Hemoglobin ABG Carboxyhemoglobin POC ABG HHb (Measured) ABG Methemoglobin ABG O2 Capacity ABG Potassium Hgb O2 Saturation Glucose Lactate FiO2 Crit Value Called To Crit Value Called By Blood Gas Notified Time Sodium 144 Potassium 4.6 Chloride 109 H Carbon Dioxide 15 L Anion Gap 25 H BUN 16 Creatinine 1.9 H Est GFR ( Amer) 43 Est GFR (Non-Af Amer) 35 Random Glucose 255 H Hemoglobin A1c Calcium 9.5 Magnesium 2.4 H Total Bilirubin 0.7 AST 45 ALT 21 Alkaline Phosphatase 84 Lactate Dehydrogenase 640 Total Creatine Kinase 154 Troponin I 0.03 NT-Pro-B Natriuret Pep 1320 H Total Protein 8.9 H Albumin 4.9 H Globulin 4.0 Albumin/Globulin Ratio 1.2 Procalcitonin TSH 3rd Generation Arterial Blood Potassium Urine Color Urine Appearance Urine pH Ur Specific [place] Urine Protein Urine Glucose (UA) Urine Ketones Urine Blood Urine Nitrate Urine Bilirubin Urine Urobilinogen Ur Leukocyte Esterase Urine RBC Urine WBC Ur Epithelial Cells Amorphous Sediment Urine Bacteria Fine Granular Casts Ur Random Creatinine Stool Occult Blood Ur L.pneumophila Ag 01/14/19 01/15/19 01/15/19 23:19 03:15 03:50 WBC RBC Hgb Hct MCV MCH MCHC RDW Plt Count MPV Neut % (Auto) Lymph % (Auto) [place] % (Auto) Eos % (Auto) Baso % (Auto) Lymph # (Auto) [place] # (Auto) Eos # (Auto) Baso # (Auto) Absolute Neuts (auto) Neutrophils % (Manual) Band Neutrophils % Lymphocytes % (Manual) Atypical Lymphs % Monocytes % (Manual) Eosinophils % (Manual) Basophils % (Manual) Myelocytes % Differential Comment Platelet Evaluation PT INR APTT pCO2 54 H 31 L pO2 387.0 H 106.0 H HCO3 18.0 L 17.9 L ABG pH 7.13 L* 7.37 ABG Total CO2 19.7 L 18.9 L ABG O2 Saturation 100.5 H 99.5 H ABG O2 Content ABG Base Excess -11.4 L -6.2 L ABG Hemoglobin ABG Carboxyhemoglobin POC ABG HHb (Measured) ABG Methemoglobin ABG O2 Capacity ABG Potassium 3.7 3.0 L Hgb O2 Saturation Glucose 229 H 129 H Lactate 3.1 H 1.4 FiO2 100.0 50.0 Crit Value Called To Dr yoo Crit Value Called By [facility] Blood Gas Notified Time 2325 Sodium 136.0 143.0 Potassium Chloride 110.0 H 114.0 H Carbon Dioxide Anion Gap BUN Creatinine Est GFR ( Amer) Est GFR (Non-Af Amer) Random Glucose Hemoglobin A1c Calcium Magnesium Total Bilirubin AST ALT Alkaline Phosphatase Lactate Dehydrogenase Total Creatine Kinase Troponin I NT-Pro-B Natriuret Pep Total Protein Albumin Globulin Albumin/Globulin Ratio Procalcitonin TSH 3rd Generation Arterial Blood Potassium 3.7 3.0 L Urine Color Urine Appearance Urine pH Ur Specific [place] Urine Protein Urine Glucose (UA) Urine Ketones Urine Blood Urine Nitrate Urine Bilirubin Urine Urobilinogen Ur Leukocyte Esterase Urine RBC Urine WBC Ur Epithelial Cells Amorphous Sediment Urine Bacteria Fine Granular Casts Ur Random Creatinine Stool Occult Blood Ur L.pneumophila Ag Negative 01/15/19 01/15/19 01/15/19 03:50 07:15 07:15 WBC RBC Hgb Hct MCV MCH MCHC RDW Plt Count MPV Neut % (Auto) Lymph % (Auto) [place] % (Auto) Eos % (Auto) Baso % (Auto) Lymph # (Auto) [place] # (Auto) Eos # (Auto) Baso # (Auto) Absolute Neuts (auto) Neutrophils % (Manual) Band Neutrophils % Lymphocytes % (Manual) Atypical Lymphs % Monocytes % (Manual) Eosinophils % (Manual) Basophils % (Manual) Myelocytes % Differential Comment Platelet Evaluation PT INR APTT pCO2 pO2 HCO3 ABG pH ABG Total CO2 ABG O2 Saturation ABG O2 Content ABG Base Excess ABG Hemoglobin ABG Carboxyhemoglobin POC ABG HHb (Measured) ABG Methemoglobin ABG O2 Capacity ABG Potassium Hgb O2 Saturation Glucose Lactate FiO2 Crit Value Called To Crit Value Called By Blood Gas Notified Time Sodium Potassium Chloride Carbon Dioxide Anion Gap BUN Creatinine Est GFR ( Amer) Est GFR (Non-Af Amer) Random Glucose Hemoglobin A1c Calcium Magnesium Total Bilirubin AST ALT Alkaline Phosphatase Lactate Dehydrogenase Total Creatine Kinase Troponin I 0.37 H* D NT-Pro-B Natriuret Pep Total Protein Albumin Globulin Albumin/Globulin Ratio Procalcitonin TSH 3rd Generation 3.14 Arterial Blood Potassium Urine Color Yellow Urine Appearance Sl cloudy Urine pH 6.0 Ur Specific [place] 1.020 Urine Protein 100 H Urine Glucose (UA) Negative Urine Ketones Negative Urine Blood Small H Urine Nitrate Negative Urine Bilirubin Negative Urine Urobilinogen 0.2 Ur Leukocyte Esterase Negative Urine RBC 5 - 10 H Urine WBC 0 - 2 Ur Epithelial Cells 1 - 3 Amorphous Sediment Few Urine Bacteria None Fine Granular Casts 0 - 2 Ur Random Creatinine Stool Occult Blood Ur L.pneumophila Ag 01/15/19 01/15/19 01/15/19 07:15 07:15 07:15 WBC 14.5 H D RBC 5.29 Hgb 16.8 Hct 49.7 MCV 94.0 MCH 31.8 MCHC 33.8 RDW 13.1 Plt Count 235 MPV 10.3 Neut % (Auto) Lymph % (Auto) [place] % (Auto) Eos % (Auto) Baso % (Auto) Lymph # (Auto) [place] # (Auto) Eos # (Auto) Baso # (Auto) Absolute Neuts (auto) Neutrophils % (Manual) Band Neutrophils % Lymphocytes % (Manual) Atypical Lymphs % Monocytes % (Manual) Eosinophils % (Manual) Basophils % (Manual) Myelocytes % Differential Comment Platelet Evaluation PT INR APTT pCO2 pO2 HCO3 ABG pH ABG Total CO2 ABG O2 Saturation ABG O2 Content ABG Base Excess ABG Hemoglobin ABG Carboxyhemoglobin POC ABG HHb (Measured) ABG Methemoglobin ABG O2 Capacity ABG Potassium Hgb O2 Saturation Glucose Lactate FiO2 Crit Value Called To Crit Value Called By Blood Gas Notified Time Sodium Potassium Chloride Carbon Dioxide Anion Gap BUN Creatinine Est GFR ( Amer) Est GFR (Non-Af Amer) Random Glucose Hemoglobin A1c 5.5 Calcium Magnesium Total Bilirubin AST ALT Alkaline Phosphatase Lactate Dehydrogenase Total Creatine Kinase Troponin I NT-Pro-B Natriuret Pep Total Protein Albumin Globulin Albumin/Globulin Ratio Procalcitonin 5.79 H TSH 3rd Generation Arterial Blood Potassium Urine Color Urine Appearance Urine pH Ur Specific [place] Urine Protein Urine Glucose (UA) Urine Ketones Urine Blood Urine Nitrate Urine Bilirubin Urine Urobilinogen Ur Leukocyte Esterase Urine RBC Urine WBC Ur Epithelial Cells Amorphous Sediment Urine Bacteria Fine Granular Casts Ur Random Creatinine Stool Occult Blood Ur L.pneumophila Ag 01/15/19 01/15/19 01/15/19 11:45 11:49 12:00 WBC RBC Hgb Hct MCV MCH MCHC RDW Plt Count MPV Neut % (Auto) Lymph % (Auto) [place] % (Auto) Eos % (Auto) Baso % (Auto) Lymph # (Auto) [place] # (Auto) Eos # (Auto) Baso # (Auto) Absolute Neuts (auto) Neutrophils % (Manual) Band Neutrophils % Lymphocytes % (Manual) Atypical Lymphs % Monocytes % (Manual) Eosinophils % (Manual) Basophils % (Manual) Myelocytes % Differential Comment Platelet Evaluation PT INR APTT pCO2 26 L pO2 96.0 HCO3 16.1 L ABG pH 7.40 ABG Total CO2 16.9 L ABG O2 Saturation 99.2 H ABG O2 Content 19.7 ABG Base Excess -6.9 L ABG Hemoglobin 14.5 ABG Carboxyhemoglobin 1.9 H POC ABG HHb (Measured) 0.8 ABG Methemoglobin 1.0 ABG O2 Capacity 19.9 ABG Potassium Hgb O2 Saturation 96.2 Glucose Lactate FiO2 36.0 Crit Value Called To Crit Value Called By Blood Gas Notified Time Sodium Potassium Chloride Carbon Dioxide Anion Gap BUN Creatinine Est GFR ( Amer) Est GFR (Non-Af Amer) Random Glucose Hemoglobin A1c Calcium Magnesium Total Bilirubin AST ALT Alkaline Phosphatase Lactate Dehydrogenase Total Creatine Kinase Troponin I 0.33 H* NT-Pro-B Natriuret Pep Total Protein Albumin Globulin Albumin/Globulin Ratio Procalcitonin TSH 3rd Generation Arterial Blood Potassium Urine Color Urine Appearance Urine pH Ur Specific [place] Urine Protein Urine Glucose (UA) Urine Ketones Urine Blood Urine Nitrate Urine Bilirubin Urine Urobilinogen Ur Leukocyte Esterase Urine RBC Urine WBC Ur Epithelial Cells Amorphous Sediment Urine Bacteria Fine Granular Casts Ur Random Creatinine 46 Stool Occult Blood Ur L.pneumophila Ag 01/15/19 12:00 WBC RBC Hgb Hct MCV MCH MCHC RDW Plt Count MPV Neut % (Auto) Lymph % (Auto) [place] % (Auto) Eos % (Auto) Baso % (Auto) Lymph # (Auto) [place] # (Auto) Eos # (Auto) Baso # (Auto) Absolute Neuts (auto) Neutrophils % (Manual) Band Neutrophils % Lymphocytes % (Manual) Atypical Lymphs % Monocytes % (Manual) Eosinophils % (Manual) Basophils % (Manual) Myelocytes % Differential Comment Platelet Evaluation PT INR APTT pCO2 pO2 HCO3 ABG pH ABG Total CO2 ABG O2 Saturation ABG O2 Content ABG Base Excess ABG Hemoglobin ABG Carboxyhemoglobin POC ABG HHb (Measured) ABG Methemoglobin ABG O2 Capacity ABG Potassium Hgb O2 Saturation Glucose Lactate FiO2 Crit Value Called To Crit Value Called By Blood Gas Notified Time Sodium Potassium Chloride Carbon Dioxide Anion Gap BUN Creatinine Est GFR ( Amer) Est GFR (Non-Af Amer) Random Glucose Hemoglobin A1c Calcium Magnesium Total Bilirubin AST ALT Alkaline Phosphatase Lactate Dehydrogenase Total Creatine Kinase Troponin I NT-Pro-B Natriuret Pep Total Protein Albumin Globulin Albumin/Globulin Ratio Procalcitonin TSH 3rd Generation Arterial Blood Potassium Urine Color Urine Appearance Urine pH Ur Specific [place] Urine Protein Urine Glucose (UA) Urine Ketones Urine Blood Urine Nitrate Urine Bilirubin Urine Urobilinogen Ur Leukocyte Esterase Urine RBC Urine WBC Ur Epithelial Cells Amorphous Sediment Urine Bacteria Fine Granular Casts Ur Random Creatinine Stool Occult Blood Positive H Ur L.pneumophila Ag Addendum Addendum: 01/15/19 15:35 ICU Attending Addendum Patient seen and examined. Case reviewed on round with housestaff. Agree with resident note above with the following additions/exceptions 68 M hx of trauma resulting in tracheostomy (1 year ago), PVD Hypertension, Hypothyroidism brought in by EMS for respiratory distress brought t ICU for HCRF much improved this AM I suspect he has underlying COPD given extensive smoking history. Will add steroids to nebs. CXR shows possible GGO uncler if CXR findings are acute or chronic, check CT CHEST without contrast repeat ABG this afternoon off bipap NSTEMI/Elevated TNI, cont to trend add ASA likely demand ischemia f/u 2 echo cont abx, check procal if patient stable and ABG acceptable will transfer this afternoon Rest of care as above in housestaff note Oneyda Maxwell MD Pulmonary Critical Care Attending
[2019-01-15] MEDS ORDERED: Metoprolol Succinate 50 mg XL Tab PO SCH (10:00)
[2019-01-15] MEDS ORDERED: Azithromycin 250 MG in Sodium Chloride 0.9% 250 ML IVPB SCH (10:00)
[2019-01-15] MEDS ORDERED: Enoxaparin 40 mg Syringe SC SCH (10:00)
[2019-01-15] MEDS ORDERED: cefTRIAXone 1 gm 1 GM/100 ML BAG IVPB SCH (10:00)
[2019-01-15] MEDS ORDERED: Cilostazol 100 mg Tab UD PO SCH (10:00)
--- NOTE | 2019-01-15 10:07 | CARD ---
APPROVED REPORT Date of service: 01/14/2019 EKG Measurement Heart [id number] <Conclusion> Sinus tachycardia with fusion complexes Biatrial enlargement Right axis deviation Cannot rule out Anterior infarct, age undetermined Abnormal ECG
[2019-01-15] MEDS ORDERED: Lactated Ringer's 1,000 ML IV SCH (10:15)
--- NOTE | 2019-01-15 11:03 | CP.PCM.HP ---
History of Present Illness - History of Present Illness History of Present Illness: Infectious disease consult note: 68-year-old male with past medical history of pneumothorax secondary to trauma with tracheostomy approximately 1 year ago, peripheral vascular disease, hypertension, hypo-thyroidism presents to the hospital with shortness of breath. Patient states that his shortness of breath had an acute onset approximately few hours prior to coming to the hospital. He said that he was having "sex with his bride when his shortness of breath started ". He denies any chest pain or palpitations. Patient also admits to some cough that is productive with whitish phlegm. No other complaints. Infectious disease was consulted for community- acquired pneumonia. 12 point ROS performed negative other than stated above PMHx: As above PSHx: tracheostomy , cataracts Meds: Refer to [facility] SocialHx: active smoker 1 PPD x50 years. Former alcoholic, but quit drinkingIf you months ago FamHx: mother and brother with diabetes. No other significant family history. Present on Admission - Present on Admission Any Indicators Present on Admission: No Past Patient History - Infectious Disease Hx of Infectious Diseases: None - Past Social History Smoking Status: Heavy Smoker > 10 Cigarettes Daily - CARDIAC Hx Cardiac Disorders: Yes Hx Hypertension: Yes Other/Comment: enlarged heart - PULMONARY Hx Respiratory Disorders: No Other/Comment: fell, rib fx x5 and pneumon/hemothorax. trach 1 year ago - NEUROLOGICAL Hx Neurological Disorder: No - HEENT Hx HEENT Problems: No - RENAL Hx Chronic Kidney Disease: No - ENDOCRINE/METABOLIC Hx Endocrine Disorders: Yes Hx Hypothyroidism: Yes - HEMATOLOGICAL/ONCOLOGICAL Hx Blood Disorders: No - INTEGUMENTARY Hx Dermatological Problems: No - MUSCULOSKELETAL/RHEUMATOLOGICAL Hx Musculoskeletal Disorders: No - GASTROINTESTINAL Hx Gastrointestinal Disorders: No - GENITOURINARY/GYNECOLOGICAL Hx Genitourinary Disorders: No - PSYCHIATRIC Hx Psychophysiologic Disorder: No Hx Substance Use: No - SURGICAL HISTORY Hx Cataract Extraction: Yes Hx Orthopedic Surgery: Yes (bilat legs) Other/Comment: hemmorhoiectomy - ANESTHESIA Hx Anesthesia: Yes Hx Anesthesia Reactions: No Hx Malignant Hyperthermia: No Meds Allergies/Adverse Reactions: Allergies Allergy/AdvReac Type Severity Reaction Status Date / Time No Known Allergies Allergy Verified 01/14/19 22:45 Physical Exam - Constitutional Appears: No Acute Distress - Head Exam Head Exam: ATRAUMATIC, NORMOCEPHALIC - Eye Exam Eye Exam: EOMI, PERRL - ENT Exam ENT Exam: Mucous Membranes Moist - Respiratory Exam Respiratory Exam: Clear to Auscultation Bilateral, Wheezes. absent: Rales, Rhonchi - Cardiovascular Exam Cardiovascular Exam: REGULAR RHYTHM, +S1, +S2 - GI/Abdominal Exam GI & Abdominal Exam: Normal Bowel Sounds, Soft. absent: Tenderness - Extremities Exam Extremities exam: Negative for: calf tenderness, pedal edema - Neurological Exam Neurological exam: Alert, CN II-XII Intact, Oriented x3 - Psychiatric Exam Psychiatric exam: Normal Mood - Skin Skin Exam: Dry, Warm Results - Vital Signs Recent Vital Signs: Last Vital Signs Temp 97.8 F 01/15/19 06:00 Pulse 116 H 01/15/19 10:29 Resp 25 H 01/15/19 09:40 BP 142/83 01/15/19 10:29 Pulse Ox 94 L 01/15/19 09:40 - Labs Result Diagrams: 01/15/19 07:15 01/14/19 23:14 Labs: Laboratory Results - last 24 hr 01/14/19 01/14/19 01/14/19 23:14 23:14 23:14 WBC 25.2 H* RBC 5.30 Hgb 16.9 Hct 50.9 MCV 96.0 MCH 31.9 MCHC 33.2 RDW 13.0 Plt Count 337 MPV 10.4 Neut % (Auto) 25.5 L Lymph % (Auto) 65.2 H [place] % (Auto) 3.8 Eos % (Auto) 4.8 Baso % (Auto) 0.7 Lymph # (Auto) 16.4 H [place] # (Auto) 1.0 H Eos # (Auto) 1.2 H Baso # (Auto) 0.17 Absolute Neuts (auto) 6.45 Neutrophils % (Manual) 26 L Band Neutrophils % 2 Lymphocytes % (Manual) 60 H Atypical Lymphs % 1 H Monocytes % (Manual) 4 Eosinophils % (Manual) 5 H Basophils % (Manual) 1 Myelocytes % 1 Differential Comment Cancelled Platelet Evaluation Normal PT 11.4 INR 1.03 APTT 35.0 pCO2 pO2 HCO3 ABG pH ABG Total CO2 ABG O2 Saturation ABG Base Excess ABG Potassium Glucose Lactate FiO2 Crit Value Called To Crit Value Called By Blood Gas Notified Time Sodium 144 Potassium 4.6 Chloride 109 H Carbon Dioxide 15 L Anion Gap 25 H BUN 16 Creatinine 1.9 H Est GFR ( Amer) 43 Est GFR (Non-Af Amer) 35 Random Glucose 255 H Calcium 9.5 Magnesium 2.4 H Total Bilirubin 0.7 AST 45 ALT 21 Alkaline Phosphatase 84 Lactate Dehydrogenase 640 Total Creatine Kinase 154 Troponin I 0.03 NT-Pro-B Natriuret Pep 1320 H Total Protein 8.9 H Albumin 4.9 H Globulin 4.0 Albumin/Globulin Ratio 1.2 TSH 3rd Generation Arterial Blood Potassium Urine Color Urine Appearance Urine pH Ur Specific [place] Urine Protein Urine Glucose (UA) Urine Ketones Urine Blood Urine Nitrate Urine Bilirubin Urine Urobilinogen Ur Leukocyte Esterase Urine RBC Urine WBC Ur Epithelial Cells Amorphous Sediment Urine Bacteria Fine Granular Casts 01/14/19 01/15/19 01/15/19 23:19 03:15 03:50 WBC RBC Hgb Hct MCV MCH MCHC RDW Plt Count MPV Neut % (Auto) Lymph % (Auto) [place] % (Auto) Eos % (Auto) Baso % (Auto) Lymph # (Auto) [place] # (Auto) Eos # (Auto) Baso # (Auto) Absolute Neuts (auto) Neutrophils % (Manual) Band Neutrophils % Lymphocytes % (Manual) Atypical Lymphs % Monocytes % (Manual) Eosinophils % (Manual) Basophils % (Manual) Myelocytes % Differential Comment Platelet Evaluation PT INR APTT pCO2 54 H 31 L pO2 387.0 H 106.0 H HCO3 18.0 L 17.9 L ABG pH 7.13 L* 7.37 ABG Total CO2 19.7 L 18.9 L ABG O2 Saturation 100.5 H 99.5 H ABG Base Excess -11.4 L -6.2 L ABG Potassium 3.7 3.0 L Glucose 229 H 129 H Lactate 3.1 H 1.4 FiO2 100.0 50.0 Crit Value Called To Dr yoo Crit Value Called By [facility] Blood Gas Notified Time 2325 Sodium 136.0 143.0 Potassium Chloride 110.0 H 114.0 H Carbon Dioxide Anion Gap BUN Creatinine Est GFR ( Amer) Est GFR (Non-Af Amer) Random Glucose Calcium Magnesium Total Bilirubin AST ALT Alkaline Phosphatase Lactate Dehydrogenase Total Creatine Kinase Troponin I NT-Pro-B Natriuret Pep Total Protein Albumin Globulin Albumin/Globulin Ratio TSH 3rd Generation Arterial Blood Potassium 3.7 3.0 L Urine Color Yellow Urine Appearance Sl cloudy Urine pH 6.0 Ur Specific [place] 1.020 Urine Protein 100 H Urine Glucose (UA) Negative Urine Ketones Negative Urine Blood Small H Urine Nitrate Negative Urine Bilirubin Negative Urine Urobilinogen 0.2 Ur Leukocyte Esterase Negative Urine RBC 5 - 10 H Urine WBC 0 - 2 Ur Epithelial Cells 1 - 3 Amorphous Sediment Few Urine Bacteria None Fine Granular Casts 0 - 2 01/15/19 01/15/19 01/15/19 07:15 07:15 07:15 WBC 14.5 H D RBC 5.29 Hgb 16.8 Hct 49.7 MCV 94.0 MCH 31.8 MCHC 33.8 RDW 13.1 Plt Count 235 MPV 10.3 Neut % (Auto) Lymph % (Auto) [place] % (Auto) Eos % (Auto) Baso % (Auto) Lymph # (Auto) [place] # (Auto) Eos # (Auto) Baso # (Auto) Absolute Neuts (auto) Neutrophils % (Manual) Band Neutrophils % Lymphocytes % (Manual) Atypical Lymphs % Monocytes % (Manual) Eosinophils % (Manual) Basophils % (Manual) Myelocytes % Differential Comment Platelet Evaluation PT INR APTT pCO2 pO2 HCO3 ABG pH ABG Total CO2 ABG O2 Saturation ABG Base Excess ABG Potassium Glucose Lactate FiO2 Crit Value Called To Crit Value Called By Blood Gas Notified Time Sodium Potassium Chloride Carbon Dioxide Anion Gap BUN Creatinine Est GFR ( Amer) Est GFR (Non-Af Amer) Random Glucose Calcium Magnesium Total Bilirubin AST ALT Alkaline Phosphatase Lactate Dehydrogenase Total Creatine Kinase Troponin I 0.37 H* D NT-Pro-B Natriuret Pep Total Protein Albumin Globulin Albumin/Globulin Ratio TSH 3rd Generation 3.14 Arterial Blood Potassium Urine Color Urine Appearance Urine pH Ur Specific [place] Urine Protein Urine Glucose (UA) Urine Ketones Urine Blood Urine Nitrate Urine Bilirubin Urine Urobilinogen Ur Leukocyte Esterase Urine RBC Urine WBC Ur Epithelial Cells Amorphous Sediment Urine Bacteria Fine Granular Casts Assessment & Plan - Assessment and Plan (Free Text) Assessment: Severe sepsis secondary to community-acquired pneumonia Non-ST elevation DC Acute kidney injury Elevated BNP Peripheral vascular disease Hypertension Hyperlipidemia Patient was started on Zosyn and Levaquin in the emergency department Continue with Rocephin and azithromycin Follow-up septic work-up Checks x-ray shows diffuse infiltrate in the right lung consistent with pneumonia Follow-up cardiology recommendations Continue to monitor for any changes Case and plan to be reviewed and discussed with Dr. Barbour.
--- NOTE | 2019-01-15 11:16 | CP.PCM.CON ---
<Eliseo Morgan - Last Filed: 01/15/19 11:20> History of Present Illness - History of Present Illness History of Present Illness: Infectious disease consult note: 68-year-old male with past medical history of pneumothorax secondary to trauma with tracheostomy approximately 1 year ago, peripheral vascular disease, hypertension, hypo-thyroidism presents to the hospital with shortness of breath. Patient states that his shortness of breath had an acute onset approximately few hours prior to coming to the hospital. He said that he was having "sex with his bride when his shortness of breath started ". He denies any chest pain or palpitations. Patient also admits to some cough that is productive with whitish phlegm. No other complaints. Infectious disease was consulted for community- acquired pneumonia. 12 point ROS performed negative other than stated above PMHx: As above PSHx: tracheostomy , cataracts Meds: Refer to [facility] SocialHx: active smoker 1 PPD x50 years. Former alcoholic, but quit drinkingIf you months ago FamHx: mother and brother with diabetes. No other significant family history. Review of Systems - Review of Systems All systems: reviewed and no additional remarkable complaints except Past Patient History - Infectious Disease Hx of Infectious Diseases: None - Past Social History Smoking Status: Heavy Smoker > 10 Cigarettes Daily - CARDIAC Hx Cardiac Disorders: Yes Hx Hypertension: Yes Other/Comment: enlarged heart - PULMONARY Hx Respiratory Disorders: No Other/Comment: fell, rib fx x5 and pneumon/hemothorax. trach 1 year ago - NEUROLOGICAL Hx Neurological Disorder: No - HEENT Hx HEENT Problems: No - RENAL Hx Chronic Kidney Disease: No - ENDOCRINE/METABOLIC Hx Endocrine Disorders: Yes Hx Hypothyroidism: Yes - HEMATOLOGICAL/ONCOLOGICAL Hx Blood Disorders: No - INTEGUMENTARY Hx Dermatological Problems: No - MUSCULOSKELETAL/RHEUMATOLOGICAL Hx Musculoskeletal Disorders: No - GASTROINTESTINAL Hx Gastrointestinal Disorders: No - GENITOURINARY/GYNECOLOGICAL Hx Genitourinary Disorders: No - PSYCHIATRIC Hx Psychophysiologic Disorder: No Hx Substance Use: No - SURGICAL HISTORY Hx Cataract Extraction: Yes Hx Orthopedic Surgery: Yes (bilat legs) Other/Comment: hemmorhoiectomy - ANESTHESIA Hx Anesthesia: Yes Hx Anesthesia Reactions: No Hx Malignant Hyperthermia: No Meds Allergies/Adverse Reactions: Allergies Allergy/AdvReac Type Severity Reaction Status Date / Time No Known Allergies Allergy Verified 01/14/19 22:45 - Medications Medications: Current Medications Albuterol/Ipratropium (Duoneb 3 Mg/0.5 Mg (3 Ml) Ud) 3 ml IH Q4H PRN PRN Reason: Shortness of Breath Albuterol/Ipratropium (Duoneb 3 Mg/0.5 Mg (3 Ml) Ud) 3 ml IH [id number] [facility] Last Admin: 01/15/19 07:52 Dose: 3 ml Aspirin (Ecotrin) 81 mg PO DAILY [facility] Cilostazol (Pletal) 100 mg PO BID [facility] Last Admin: 01/15/19 10:29 Dose: 100 mg Heparin Sodium (Porcine) (Heparin) 5,000 units SC Q8 [facility]; Protocol Azithromycin 250 mg/ Sodium (Chloride) 250 mls @ 167 mls/hr IVPB DAILY [facility]; Protocol Last Admin: 01/15/19 10:28 Dose: 167 mls/hr Ceftriaxone Sodium (Rocephin 1 Gram Ivpb) 1 gm in 100 mls @ 100 mls/hr IVPB DAILY [facility]; Protocol Lactated Ringer's (Lactated Ringer's) 1,000 mls @ 100 mls/hr IV .Q10H [facility] Stop: 01/16/19 06:14 Last Admin: 01/15/19 10:30 Dose: 100 mls/hr Levothyroxine Sodium (Synthroid) 50 mcg PO 0600 [facility] Last Admin: 01/15/19 06:33 Dose: 50 mcg Losartan Potassium (Cozaar) 100 mg PO DAILY [facility] Metoprolol Succinate (Toprol Xl) 50 mg PO DAILY [facility] Last Admin: 01/15/19 10:29 Dose: 50 mg Pantoprazole Sodium (Protonix Ec Tab) 40 mg PO 0600 [facility] Last Admin: 01/15/19 06:33 Dose: 40 mg Prednisone (Prednisone Tab) 40 mg PO DAILY [facility] Stop: 01/19/19 11:30 Physical Exam - Constitutional Appears: No Acute Distress - Head Exam Head Exam: ATRAUMATIC, NORMOCEPHALIC - Eye Exam Eye Exam: EOMI, PERRL - ENT Exam ENT Exam: Mucous Membranes Moist - Respiratory Exam Respiratory Exam: Clear to Auscultation Bilateral. absent: Rales, Rhonchi - Cardiovascular Exam Cardiovascular Exam: REGULAR RHYTHM, +S1, +S2 - GI/Abdominal Exam GI & Abdominal Exam: Normal Bowel Sounds, Soft - Extremities Exam Extremities exam: Negative for: calf tenderness, pedal edema - Neurological Exam Neurological exam: Alert, CN II-XII Intact, Oriented x3 - Psychiatric Exam Psychiatric exam: Normal Mood - Skin Skin Exam: Dry, Warm Results - Vital Signs Recent Vital Signs: Last Vital Signs Temp 97.8 F 01/15/19 06:00 Pulse 116 H 01/15/19 10:29 Resp 25 H 01/15/19 09:40 BP 142/83 01/15/19 10:29 Pulse Ox 94 L 01/15/19 09:40 - Labs Result Diagrams: 01/15/19 07:15 01/14/19 23:14 Labs: Laboratory Results - last 24 hr 01/14/19 01/14/19 01/14/19 23:14 23:14 23:14 WBC 25.2 H* RBC 5.30 Hgb 16.9 Hct 50.9 MCV 96.0 MCH 31.9 MCHC 33.2 RDW 13.0 Plt Count 337 MPV 10.4 Neut % (Auto) 25.5 L Lymph % (Auto) 65.2 H [place] % (Auto) 3.8 Eos % (Auto) 4.8 Baso % (Auto) 0.7 Lymph # (Auto) 16.4 H [place] # (Auto) 1.0 H Eos # (Auto) 1.2 H Baso # (Auto) 0.17 Absolute Neuts (auto) 6.45 Neutrophils % (Manual) 26 L Band Neutrophils % 2 Lymphocytes % (Manual) 60 H Atypical Lymphs % 1 H Monocytes % (Manual) 4 Eosinophils % (Manual) 5 H Basophils % (Manual) 1 Myelocytes % 1 Differential Comment Cancelled Platelet Evaluation Normal PT 11.4 INR 1.03 APTT 35.0 pCO2 pO2 HCO3 ABG pH ABG Total CO2 ABG O2 Saturation ABG Base Excess ABG Potassium Glucose Lactate FiO2 Crit Value Called To Crit Value Called By Blood Gas Notified Time Sodium 144 Potassium 4.6 Chloride 109 H Carbon Dioxide 15 L Anion Gap 25 H BUN 16 Creatinine 1.9 H Est GFR ( Amer) 43 Est GFR (Non-Af Amer) 35 Random Glucose 255 H Calcium 9.5 Magnesium 2.4 H Total Bilirubin 0.7 AST 45 ALT 21 Alkaline Phosphatase 84 Lactate Dehydrogenase 640 Total Creatine Kinase 154 Troponin I 0.03 NT-Pro-B Natriuret Pep 1320 H Total Protein 8.9 H Albumin 4.9 H Globulin 4.0 Albumin/Globulin Ratio 1.2 TSH 3rd Generation Arterial Blood Potassium Urine Color Urine Appearance Urine pH Ur Specific Mallard Urine Protein Urine Glucose (UA) Urine Ketones Urine Blood Urine Nitrate Urine Bilirubin Urine Urobilinogen Ur Leukocyte Esterase Urine RBC Urine WBC Ur Epithelial Cells Amorphous Sediment Urine Bacteria Fine Granular Casts 01/14/19 01/15/19 01/15/19 23:19 03:15 03:50 WBC RBC Hgb Hct MCV MCH MCHC RDW Plt Count MPV Neut % (Auto) Lymph % (Auto) [place] % (Auto) Eos % (Auto) Baso % (Auto) Lymph # (Auto) [place] # (Auto) Eos # (Auto) Baso # (Auto) Absolute Neuts (auto) Neutrophils % (Manual) Band Neutrophils % Lymphocytes % (Manual) Atypical Lymphs % Monocytes % (Manual) Eosinophils % (Manual) Basophils % (Manual) Myelocytes % Differential Comment Platelet Evaluation PT INR APTT pCO2 54 H 31 L pO2 387.0 H 106.0 H HCO3 18.0 L 17.9 L ABG pH 7.13 L* 7.37 ABG Total CO2 19.7 L 18.9 L ABG O2 Saturation 100.5 H 99.5 H ABG Base Excess -11.4 L -6.2 L ABG Potassium 3.7 3.0 L Glucose 229 H 129 H Lactate 3.1 H 1.4 FiO2 100.0 50.0 Crit Value Called To Dr yoo Crit Value Called By [facility] Blood Gas Notified Time 2325 Sodium 136.0 143.0 Potassium Chloride 110.0 H 114.0 H Carbon Dioxide Anion Gap BUN Creatinine Est GFR ( Amer) Est GFR (Non-Af Amer) Random Glucose Calcium Magnesium Total Bilirubin AST ALT Alkaline Phosphatase Lactate Dehydrogenase Total Creatine Kinase Troponin I NT-Pro-B Natriuret Pep Total Protein Albumin Globulin Albumin/Globulin Ratio TSH 3rd Generation Arterial Blood Potassium 3.7 3.0 L Urine Color Yellow Urine Appearance Sl cloudy Urine pH 6.0 Ur Specific Mallard 1.020 Urine Protein 100 H Urine Glucose (UA) Negative Urine Ketones Negative Urine Blood Small H Urine Nitrate Negative Urine Bilirubin Negative Urine Urobilinogen 0.2 Ur Leukocyte Esterase Negative Urine RBC 5 - 10 H Urine WBC 0 - 2 Ur Epithelial Cells 1 - 3 Amorphous Sediment Few Urine Bacteria None Fine Granular Casts 0 - 2 01/15/19 01/15/19 01/15/19 07:15 07:15 07:15 WBC 14.5 H D RBC 5.29 Hgb 16.8 Hct 49.7 MCV 94.0 MCH 31.8 MCHC 33.8 RDW 13.1 Plt Count 235 MPV 10.3 Neut % (Auto) Lymph % (Auto) [place] % (Auto) Eos % (Auto) Baso % (Auto) Lymph # (Auto) [place] # (Auto) Eos # (Auto) Baso # (Auto) Absolute Neuts (auto) Neutrophils % (Manual) Band Neutrophils % Lymphocytes % (Manual) Atypical Lymphs % Monocytes % (Manual) Eosinophils % (Manual) Basophils % (Manual) Myelocytes % Differential Comment Platelet Evaluation PT INR APTT pCO2 pO2 HCO3 ABG pH ABG Total CO2 ABG O2 Saturation ABG Base Excess ABG Potassium Glucose Lactate FiO2 Crit Value Called To Crit Value Called By Blood Gas Notified Time Sodium Potassium Chloride Carbon Dioxide Anion Gap BUN Creatinine Est GFR ( Amer) Est GFR (Non-Af Amer) Random Glucose Calcium Magnesium Total Bilirubin AST ALT Alkaline Phosphatase Lactate Dehydrogenase Total Creatine Kinase Troponin I 0.37 H* D NT-Pro-B Natriuret Pep Total Protein Albumin Globulin Albumin/Globulin Ratio TSH 3rd Generation 3.14 Arterial Blood Potassium Urine Color Urine Appearance Urine pH Ur Specific Mallard Urine Protein Urine Glucose (UA) Urine Ketones Urine Blood Urine Nitrate Urine Bilirubin Urine Urobilinogen Ur Leukocyte Esterase Urine RBC Urine WBC Ur Epithelial Cells Amorphous Sediment Urine Bacteria Fine Granular Casts Assessment & Plan - Assessment and Plan (Free Text) Assessment: Severe sepsis secondary to community-acquired pneumonia Non-ST elevation MO Acute kidney injury Elevated BNP 2/2 acute CHF Peripheral vascular disease Hypertension Hyperlipidemia Patient was started on Zosyn and Levaquin in the emergency department Continue with Rocephin and azithromycin Follow-up septic work-up Checks x-ray shows diffuse infiltrate in the right lung consistent with pneumonia Follow-up cardiology recommendations Continue to monitor for any changes Case and plan to be reviewed and discussed with Dr. Barbour. <Dusty Barbour - Last Filed: 01/15/19 22:10> Meds - Medications Medications: Current Medications Albuterol/Ipratropium (Duoneb 3 Mg/0.5 Mg (3 Ml) Ud) 3 ml IH Q4H PRN PRN Reason: Shortness of Breath Albuterol/Ipratropium (Duoneb 3 Mg/0.5 Mg (3 Ml) Ud) 3 ml IH [id number] [facility] Last Admin: 01/15/19 20:34 Dose: 3 ml Aspirin (Ecotrin) 81 mg PO DAILY [facility] Last Admin: 01/15/19 14:52 Dose: 81 mg Atorvastatin Calcium (Lipitor) 20 mg PO DIN [facility] Last Admin: 01/15/19 18:56 Dose: Not Given Cilostazol (Pletal) 100 mg PO BID [facility] Last Admin: 01/15/19 10:29 Dose: 100 mg Heparin Sodium (Porcine) (Heparin) 5,000 units SC Q8 [facility]; Protocol Last Admin: 01/15/19 21:55 Dose: 5,000 units Azithromycin 250 mg/ Sodium (Chloride) 250 mls @ 167 mls/hr IVPB DAILY [facility]; Protocol Last Admin: 01/15/19 10:28 Dose: 167 mls/hr Ceftriaxone Sodium (Rocephin 1 Gram Ivpb) 1 gm in 100 mls @ 100 mls/hr IVPB DAILY [facility]; Protocol Last Admin: 01/15/19 09:30 Dose: 100 mls/hr Lactated Ringer's (Lactated Ringer's) 1,000 mls @ 100 mls/hr IV .Q10H [facility] Stop: 01/16/19 06:14 Last Admin: 01/15/19 10:30 Dose: 100 mls/hr Levothyroxine Sodium (Synthroid) 50 mcg PO 0600 [facility] Last Admin: 01/15/19 06:33 Dose: 50 mcg Losartan Potassium (Cozaar) 100 mg PO DAILY [facility] Metoprolol Succinate (Toprol Xl) 50 mg PO DAILY [facility] Last Admin: 01/15/19 10:29 Dose: 50 mg Prednisone (Prednisone Tab) 40 mg PO DAILY [facility] Stop: 01/19/19 11:30 Last Admin: 01/15/19 14:51 Dose: 40 mg Results - Vital Signs Recent Vital Signs: Last Vital Signs Temp 98 F 01/15/19 12:00 Pulse 92 H 01/15/19 20:50 Resp 24 01/15/19 20:50 BP 128/70 01/15/19 20:30 Pulse Ox 88 L 01/15/19 20:50 - Labs Result Diagrams: 01/15/19 07:15 01/14/19 23:14 Labs: Laboratory Results - last 24 hr 01/14/19 01/14/19 01/14/19 23:14 23:14 23:14 WBC 25.2 H* RBC 5.30 Hgb 16.9 Hct 50.9 MCV 96.0 MCH 31.9 MCHC 33.2 RDW 13.0 Plt Count 337 MPV 10.4 Neut % (Auto) 25.5 L Lymph % (Auto) 65.2 H [place] % (Auto) 3.8 Eos % (Auto) 4.8 Baso % (Auto) 0.7 Lymph # (Auto) 16.4 H [place] # (Auto) 1.0 H Eos # (Auto) 1.2 H Baso # (Auto) 0.17 Absolute Neuts (auto) 6.45 Neutrophils % (Manual) 26 L Band Neutrophils % 2 Lymphocytes % (Manual) 60 H Atypical Lymphs % 1 H Monocytes % (Manual) 4 Eosinophils % (Manual) 5 H Basophils % (Manual) 1 Myelocytes % 1 Differential Comment Cancelled Platelet Evaluation Normal PT 11.4 INR 1.03 APTT 35.0 pCO2 pO2 HCO3 ABG pH ABG Total CO2 ABG O2 Saturation ABG O2 Content ABG Base Excess ABG Hemoglobin ABG Carboxyhemoglobin POC ABG HHb (Measured) ABG Methemoglobin ABG O2 Capacity ABG Potassium Hgb O2 Saturation Glucose Lactate FiO2 Crit Value Called To Crit Value Called By Blood Gas Notified Time Sodium 144 Potassium 4.6 Chloride 109 H Carbon Dioxide 15 L Anion Gap 25 H BUN 16 Creatinine 1.9 H Est GFR ( Amer) 43 Est GFR (Non-Af Amer) 35 Random Glucose 255 H Hemoglobin A1c Calcium 9.5 Magnesium 2.4 H Total Bilirubin 0.7 AST 45 ALT 21 Alkaline Phosphatase 84 Lactate Dehydrogenase 640 Total Creatine Kinase 154 Troponin I 0.03 NT-Pro-B Natriuret Pep 1320 H Total Protein 8.9 H Albumin 4.9 H Globulin 4.0 Albumin/Globulin Ratio 1.2 Procalcitonin TSH 3rd Generation Arterial Blood Potassium Urine Color Urine Appearance Urine pH Ur Specific Mallard Urine Protein Urine Glucose (UA) Urine Ketones Urine Blood Urine Nitrate Urine Bilirubin Urine Urobilinogen Ur Leukocyte Esterase Urine RBC Urine WBC Ur Epithelial Cells Amorphous Sediment Urine Bacteria Fine Granular Casts Urine Osmolality Ur Random Creatinine U Random Total Protein Ur Random Sodium Stool Occult Blood Urine Opiates Screen Urine Methadone Screen Ur Barbiturates Screen Ur Phencyclidine Scrn Ur Amphetamines Screen U Benzodiazepines Scrn U Oth Cocaine Metabols U Cannabinoids Screen Ur L.pneumophila Ag 01/14/19 01/15/19 01/15/19 23:19 03:15 03:50 WBC RBC Hgb Hct MCV MCH MCHC RDW Plt Count MPV Neut % (Auto) Lymph % (Auto) [place] % (Auto) Eos % (Auto) Baso % (Auto) Lymph # (Auto) [place] # (Auto) Eos # (Auto) Baso # (Auto) Absolute Neuts (auto) Neutrophils % (Manual) Band Neutrophils % Lymphocytes % (Manual) Atypical Lymphs % Monocytes % (Manual) Eosinophils % (Manual) Basophils % (Manual) Myelocytes % Differential Comment Platelet Evaluation PT INR APTT pCO2 54 H 31 L pO2 387.0 H 106.0 H HCO3 18.0 L 17.9 L ABG pH 7.13 L* 7.37 ABG Total CO2 19.7 L 18.9 L ABG O2 Saturation 100.5 H 99.5 H ABG O2 Content ABG Base Excess -11.4 L -6.2 L ABG Hemoglobin ABG Carboxyhemoglobin POC ABG HHb (Measured) ABG Methemoglobin ABG O2 Capacity ABG Potassium 3.7 3.0 L Hgb O2 Saturation Glucose 229 H 129 H Lactate 3.1 H 1.4 FiO2 100.0 50.0 Crit Value Called To Dr yoo Crit Value Called By [facility] Blood Gas Notified Time 2325 Sodium 136.0 143.0 Potassium Chloride 110.0 H 114.0 H Carbon Dioxide Anion Gap BUN Creatinine Est GFR ( Amer) Est GFR (Non-Af Amer) Random Glucose Hemoglobin A1c Calcium Magnesium Total Bilirubin AST ALT Alkaline Phosphatase Lactate Dehydrogenase Total Creatine Kinase Troponin I NT-Pro-B Natriuret Pep Total Protein Albumin Globulin Albumin/Globulin Ratio Procalcitonin TSH 3rd Generation Arterial Blood Potassium 3.7 3.0 L Urine Color Urine Appearance Urine pH Ur Specific Mallard Urine Protein Urine Glucose (UA) Urine Ketones Urine Blood Urine Nitrate Urine Bilirubin Urine Urobilinogen Ur Leukocyte Esterase Urine RBC Urine WBC Ur Epithelial Cells Amorphous Sediment Urine Bacteria Fine Granular Casts Urine Osmolality Ur Random Creatinine U Random Total Protein Ur Random Sodium Stool Occult Blood Urine Opiates Screen Urine Methadone Screen Ur Barbiturates Screen Ur Phencyclidine Scrn Ur Amphetamines Screen U Benzodiazepines Scrn U Oth Cocaine Metabols U Cannabinoids Screen Ur L.pneumophila Ag Negative 01/15/19 01/15/19 01/15/19 03:50 07:15 07:15 WBC RBC Hgb Hct MCV MCH MCHC RDW Plt Count MPV Neut % (Auto) Lymph % (Auto) [place] % (Auto) Eos % (Auto) Baso % (Auto) Lymph # (Auto) [place] # (Auto) Eos # (Auto) Baso # (Auto) Absolute Neuts (auto) Neutrophils % (Manual) Band Neutrophils % Lymphocytes % (Manual) Atypical Lymphs % Monocytes % (Manual) Eosinophils % (Manual) Basophils % (Manual) Myelocytes % Differential Comment Platelet Evaluation PT INR APTT pCO2 pO2 HCO3 ABG pH ABG Total CO2 ABG O2 Saturation ABG O2 Content ABG Base Excess ABG Hemoglobin ABG Carboxyhemoglobin POC ABG HHb (Measured) ABG Methemoglobin ABG O2 Capacity ABG Potassium Hgb O2 Saturation Glucose Lactate FiO2 Crit Value Called To Crit Value Called By Blood Gas Notified Time Sodium Potassium Chloride Carbon Dioxide Anion Gap BUN Creatinine Est GFR ( Amer) Est GFR (Non-Af Amer) Random Glucose Hemoglobin A1c Calcium Magnesium Total Bilirubin AST ALT Alkaline Phosphatase Lactate Dehydrogenase Total Creatine Kinase Troponin I 0.37 H* D NT-Pro-B Natriuret Pep Total Protein Albumin Globulin Albumin/Globulin Ratio Procalcitonin TSH 3rd Generation 3.14 Arterial Blood Potassium Urine Color Yellow Urine Appearance Sl cloudy Urine pH 6.0 Ur Specific [place]ard 1.020 Urine Protein 100 H Urine Glucose (UA) Negative Urine Ketones Negative Urine Blood Small H Urine Nitrate Negative Urine Bilirubin Negative Urine Urobilinogen 0.2 Ur Leukocyte Esterase Negative Urine RBC 5 - 10 H Urine WBC 0 - 2 Ur Epithelial Cells 1 - 3 Amorphous Sediment Few Urine Bacteria None Fine Granular Casts 0 - 2 Urine Osmolality Ur Random Creatinine U Random Total Protein Ur Random Sodium Stool Occult Blood Urine Opiates Screen Urine Methadone Screen Ur Barbiturates Screen Ur Phencyclidine Scrn Ur Amphetamines Screen U Benzodiazepines Scrn U Oth Cocaine Metabols U Cannabinoids Screen Ur L.pneumophila Ag 01/15/19 01/15/19 01/15/19 07:15 07:15 07:15 WBC 14.5 H D RBC 5.29 Hgb 16.8 Hct 49.7 MCV 94.0 MCH 31.8 MCHC 33.8 RDW 13.1 Plt Count 235 MPV 10.3 Neut % (Auto) Lymph % (Auto) [place] % (Auto) Eos % (Auto) Baso % (Auto) Lymph # (Auto) [place] # (Auto) Eos # (Auto) Baso # (Auto) Absolute Neuts (auto) Neutrophils % (Manual) Band Neutrophils % Lymphocytes % (Manual) Atypical Lymphs % Monocytes % (Manual) Eosinophils % (Manual) Basophils % (Manual) Myelocytes % Differential Comment Platelet Evaluation PT INR APTT pCO2 pO2 HCO3 ABG pH ABG Total CO2 ABG O2 Saturation ABG O2 Content ABG Base Excess ABG Hemoglobin ABG Carboxyhemoglobin POC ABG HHb (Measured) ABG Methemoglobin ABG O2 Capacity ABG Potassium Hgb O2 Saturation Glucose Lactate FiO2 Crit Value Called To Crit Value Called By Blood Gas Notified Time Sodium Potassium Chloride Carbon Dioxide Anion Gap BUN Creatinine Est GFR ( Amer) Est GFR (Non-Af Amer) Random Glucose Hemoglobin A1c 5.5 Calcium Magnesium Total Bilirubin AST ALT Alkaline Phosphatase Lactate Dehydrogenase Total Creatine Kinase Troponin I NT-Pro-B Natriuret Pep Total Protein Albumin Globulin Albumin/Globulin Ratio Procalcitonin 5.79 H TSH 3rd Generation Arterial Blood Potassium Urine Color Urine Appearance Urine pH Ur Specific [place]ard Urine Protein Urine Glucose (UA) Urine Ketones Urine Blood Urine Nitrate Urine Bilirubin Urine Urobilinogen Ur Leukocyte Esterase Urine RBC Urine WBC Ur Epithelial Cells Amorphous Sediment Urine Bacteria Fine Granular Casts Urine Osmolality Ur Random Creatinine U Random Total Protein Ur Random Sodium Stool Occult Blood Urine Opiates Screen Urine Methadone Screen Ur Barbiturates Screen Ur Phencyclidine Scrn Ur Amphetamines Screen U Benzodiazepines Scrn U Oth Cocaine Metabols U Cannabinoids Screen Ur L.pneumophila Ag 01/15/19 01/15/19 01/15/19 11:45 11:49 12:00 WBC RBC Hgb Hct MCV MCH MCHC RDW Plt Count MPV Neut % (Auto) Lymph % (Auto) [place] % (Auto) Eos % (Auto) Baso % (Auto) Lymph # (Auto) [place] # (Auto) Eos # (Auto) Baso # (Auto) Absolute Neuts (auto) Neutrophils % (Manual) Band Neutrophils % Lymphocytes % (Manual) Atypical Lymphs % Monocytes % (Manual) Eosinophils % (Manual) Basophils % (Manual) Myelocytes % Differential Comment Platelet Evaluation PT INR APTT pCO2 26 L pO2 96.0 HCO3 16.1 L ABG pH 7.40 ABG Total CO2 16.9 L ABG O2 Saturation 99.2 H ABG O2 Content 19.7 ABG Base Excess -6.9 L ABG Hemoglobin 14.5 ABG Carboxyhemoglobin 1.9 H POC ABG HHb (Measured) 0.8 ABG Methemoglobin 1.0 ABG O2 Capacity 19.9 ABG Potassium Hgb O2 Saturation 96.2 Glucose Lactate FiO2 36.0 Crit Value Called To Crit Value Called By Blood Gas Notified Time Sodium Potassium Chloride Carbon Dioxide Anion Gap BUN Creatinine Est GFR ( Amer) Est GFR (Non-Af Amer) Random Glucose Hemoglobin A1c Calcium Magnesium Total Bilirubin AST ALT Alkaline Phosphatase Lactate Dehydrogenase Total Creatine Kinase Troponin I 0.33 H* NT-Pro-B Natriuret Pep Total Protein Albumin Globulin Albumin/Globulin Ratio Procalcitonin TSH 3rd Generation Arterial Blood Potassium Urine Color Urine Appearance Urine pH Ur Specific [place] Urine Protein Urine Glucose (UA) Urine Ketones Urine Blood Urine Nitrate Urine Bilirubin Urine Urobilinogen Ur Leukocyte Esterase Urine RBC Urine WBC Ur Epithelial Cells Amorphous Sediment Urine Bacteria Fine Granular Casts Urine Osmolality Ur Random Creatinine 46 U Random Total Protein Ur Random Sodium Stool Occult Blood Urine Opiates Screen Urine Methadone Screen Ur Barbiturates Screen Ur Phencyclidine Scrn Ur Amphetamines Screen U Benzodiazepines Scrn U Oth Cocaine Metabols U Cannabinoids Screen Ur L.pneumophila Ag 01/15/19 01/15/19 12:00 15:23 WBC RBC Hgb Hct MCV MCH MCHC RDW Plt Count MPV Neut % (Auto) Lymph % (Auto) [place] % (Auto) Eos % (Auto) Baso % (Auto) Lymph # (Auto) [place] # (Auto) Eos # (Auto) Baso # (Auto) Absolute Neuts (auto) Neutrophils % (Manual) Band Neutrophils % Lymphocytes % (Manual) Atypical Lymphs % Monocytes % (Manual) Eosinophils % (Manual) Basophils % (Manual) Myelocytes % Differential Comment Platelet Evaluation PT INR APTT pCO2 pO2 HCO3 ABG pH ABG Total CO2 ABG O2 Saturation ABG O2 Content ABG Base Excess ABG Hemoglobin ABG Carboxyhemoglobin POC ABG HHb (Measured) ABG Methemoglobin ABG O2 Capacity ABG Potassium Hgb O2 Saturation Glucose Lactate FiO2 Crit Value Called To Crit Value Called By Blood Gas Notified Time Sodium Potassium Chloride Carbon Dioxide Anion Gap BUN Creatinine Est GFR ( Amer) Est GFR (Non-Af Amer) Random Glucose Hemoglobin A1c Calcium Magnesium Total Bilirubin AST ALT Alkaline Phosphatase Lactate Dehydrogenase Total Creatine Kinase Troponin I NT-Pro-B Natriuret Pep Total Protein Albumin Globulin Albumin/Globulin Ratio Procalcitonin TSH 3rd Generation Arterial Blood Potassium Urine Color Urine Appearance Urine pH Ur Specific [place]ard Urine Protein Urine Glucose (UA) Urine Ketones Urine Blood Urine Nitrate Urine Bilirubin Urine Urobilinogen Ur Leukocyte Esterase Urine RBC Urine WBC Ur Epithelial Cells Amorphous Sediment Urine Bacteria Fine Granular Casts Urine Osmolality 390 Ur Random Creatinine U Random Total Protein 65 Ur Random Sodium 118 Stool Occult Blood Positive H Urine Opiates Screen Negative Urine Methadone Screen Negative Ur Barbiturates Screen Negative Ur Phencyclidine Scrn Negative Ur Amphetamines Screen Negative U Benzodiazepines Scrn Negative U Oth Cocaine Metabols Negative U Cannabinoids Screen Negative Ur L.pneumophila Ag Attending/Attestation - Attestation I have personally seen and examined this patient.: Yes I have fully participated in the care of the patient.: Yes I have reviewed all pertinent clinical information: Yes
[2019-01-15 11:53] LABS: ARTERIAL BLOOD GAS HCO3 16.1 mmol/L (21-28); ARTERIAL BLOOD GAS HEMOGLOBIN 14.5 g/dL (11.7-17.4); ARTERIAL BLOOD GAS O2 CAPACITY 19.9 mL/dl (16-24); ARTERIAL BLOOD GAS O2 CONTENT 19.7 ML/dl (15-23); ARTERIAL BLOOD GAS O2 SAT 99.2 % (95-98); ARTERIAL BLOOD GAS PCO2 26 mm/Hg (35-45); ARTERIAL BLOOD GAS TCO2 16.9 mmol.L (22-28)
--- NOTE | 2019-01-15 13:44 | CP.PCM.APN ---
Subjective - Date & Time of Evaluation Date of Evaluation: 01/15/19 Time of Evaluation: 11:15 - Subjective Subjective: pt seen and examined in the ICU . pt asleep in NAD Review of Systems - Constitutional Constitutional: As Per HPI Objective - Vital Signs/Intake and Output Vital Signs (last 24 hours): Temp Pulse Resp BP Pulse Ox 97.8 F 116 H 25 H 142/83 94 L 01/15/19 06:00 01/15/19 10:29 01/15/19 09:40 01/15/19 10:29 01/15/19 09:40 Intake and Output: 01/15/19 01/15/19 06:59 18:59 Intake Total 300 Output Total 1000 Balance -700 - Medications Medications: Current Medications Albuterol/Ipratropium (Duoneb 3 Mg/0.5 Mg (3 Ml) Ud) 3 ml IH Q4H PRN PRN Reason: Shortness of Breath Albuterol/Ipratropium (Duoneb 3 Mg/0.5 Mg (3 Ml) Ud) 3 ml IH [id number] [facility] Last Admin: 01/15/19 13:04 Dose: 3 ml Aspirin (Ecotrin) 81 mg PO DAILY [facility] Atorvastatin Calcium (Lipitor) 20 mg PO DIN [facility] Cilostazol (Pletal) 100 mg PO BID [facility] Last Admin: 01/15/19 10:29 Dose: 100 mg Heparin Sodium (Porcine) (Heparin) 5,000 units SC Q8 [facility]; Protocol Azithromycin 250 mg/ Sodium (Chloride) 250 mls @ 167 mls/hr IVPB DAILY [facility]; Protocol Last Admin: 01/15/19 10:28 Dose: 167 mls/hr Ceftriaxone Sodium (Rocephin 1 Gram Ivpb) 1 gm in 100 mls @ 100 mls/hr IVPB DAILY [facility]; Protocol Last Admin: 01/15/19 09:30 Dose: 100 mls/hr Lactated Ringer's (Lactated Ringer's) 1,000 mls @ 100 mls/hr IV .Q10H [facility] Stop: 01/16/19 06:14 Last Admin: 01/15/19 10:30 Dose: 100 mls/hr Levothyroxine Sodium (Synthroid) 50 mcg PO 0600 [facility] Last Admin: 01/15/19 06:33 Dose: 50 mcg Losartan Potassium (Cozaar) 100 mg PO DAILY [facility] Metoprolol Succinate (Toprol Xl) 50 mg PO DAILY [facility] Last Admin: 01/15/19 10:29 Dose: 50 mg Pantoprazole Sodium (Protonix Ec Tab) 40 mg PO 0600 [facility] Last Admin: 01/15/19 06:33 Dose: 40 mg Prednisone (Prednisone Tab) 40 mg PO DAILY [facility] Stop: 01/19/19 11:30 - Labs Labs: 01/15/19 07:15 01/14/19 23:14 PT 11.4 SECONDS (9.4-12.5) 01/14/19 23:14 INR 1.03 01/14/19 23:14 APTT 35.0 Seconds (26.9-38.3) 01/14/19 23:14 - Constitutional Appears: Non-toxic, No Acute Distress - Head Exam Head Exam: ATRAUMATIC - Eye Exam Eye Exam: Normal appearance - Respiratory Exam Respiratory Exam: Decreased Breath Sounds, NORMAL BREATHING PATTERN - Cardiovascular Exam Cardiovascular Exam: +S1, +S2 - GI/Abdominal Exam GI & Abdominal Exam: Soft, Normal Bowel Sounds - Neurological Exam Neurological Exam: Alert, Awake - Skin Skin Exam: Dry, Intact Assessment and Plan - Assessment and Plan (Free Text) Plan: Impressions Chest X-Ray 01/14/19 22:51 IMPRESSION: Diffuse infiltrate in the right lung consistent with pneumonia Troponin I 0.33 ng/mL H* 01/15/19 12:00 Troponin I 0.33 ng/mL H* 01/15/19 12:00 A/P 68 yr old white male with pmh sig for pneumothorax, tracheostomy, htn, hypothyriodism who presented with c/o acute SOB. Pt was found to have elevated trop, diffuse infiltrates on Cxr and was admitted to the ICU for mgmt of chf and pne. Pt with ID consultation and IV antibiotics being mgmd by CCU team. will follow clinical course. BPCI/TIC - BPCIA/TIC Educated pt/family on BPCIA/CIR/Med to Bed Programs: Yes (pt discussed with TIC CARLY veronica)
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
--- NOTE | 2019-01-15 14:03 | CT ---
Date of service: 01/15/2019 PROCEDURE: CT Chest without contrast HISTORY: PNA COMPARISON: None available. TECHNIQUE: Contiguous axial images were obtained through the chest without intravenous contrast enhancement. Sagittal and coronal reconstructions were performed. Radiation dose: Total exam DLP = 557.28 mGy-cm. This CT exam was performed using one or more of the following dose reduction techniques: Automated exposure control, adjustment of the mA and/or kV according to patient size, and/or use of iterative reconstruction technique. FINDINGS: LUNGS: There is a diffuse interstitial infiltrate in the right lung. Minimal interstitial changes are seen on the left. MEDIASTINUM: Unremarkable thoracic aorta. No aneurysm. Normal sized heart. Main pulmonary artery unremarkable. No vascular congestion. No lymphadenopathy. Aortic and coronary artery calcification PLEURA: No pleural fluid. No pneumothorax. BONES: No fracture. No destructive lesion. UPPER ABDOMEN: Grossly unremarkable. OTHER FINDINGS: None. IMPRESSION: There is a diffuse interstitial infiltrate in the right lung. Minimal interstitial changes are seen on the left.
[2019-01-15 15:51] LABS: OPIATES, UR NEGATIVE (NEGATIVE); PHENCYCLIDINE, UR NEGATIVE (NEGATIVE)
[2019-01-15 15:53] LABS: BARBITURATES, UR NEGATIVE (NEGATIVE); BENZODIAZEPINES, UR NEGATIVE (NEGATIVE); TOTAL PROTEIN,RANDOM URINE 65 mg/L
--- NOTE | 2019-01-15 16:16 | CARD ---
APPROVED REPORT Date of service: 01/15/2019 EXAM: Two-dimensional and M-mode echocardiogram with Doppler and color Doppler. INDICATION Congestive Heart Failure 2D DIMENSIONS Left Atrium (2D)3.3 (1.6-4.0cm)IVSd1.4 (0.7-1.1cm) LVDd4.6 (3.9-5.9cm)PWd1.6 (0.7-1.1cm) LVDs3.6 (2.5-4.0cm)FS (%) 22.6 % LVEF (%)45.5 (>50%) M-Mode DIMENSIONS Aortic Root2.30 (2.2-3.7cm)Aortic Cusp Exc.1.30 (1.5-2.0cm) Aortic Valve AoV Peak Hueczkdf315.0cm/Gage Peak GR.4mmHg Mitral Valve E/A ratio0.0 TDI E/Lateral E'0.0E/Medial E'0.0 Tricuspid Valve TR Peak [id number] [id number] Peak Gr.21mmHg [id number] LEFT VENTRICLE The left ventricle is normal size. There is mild concentric left ventricular hypertrophy. The systolic function is mildly impaired. Significant regional wall motion abnormalities noted. Transmitral Doppler flow pattern is Grade I-abnormal relaxation pattern. There is no ventricular septal defect visualized. RIGHT VENTRICLE The right ventricle is normal size. There is normal right ventricular wall thickness. The right ventricular systolic function is normal. ATRIA The left atrium size is normal. The right atrium size is normal. AORTIC VALVE The aortic valve is mildly thickened. No aortic regurgitation is present. There is no aortic valvular stenosis. MITRAL VALVE The mitral valve is mildly thickened. Mitral regurgitation is trace. There is no mitral valve stenosis. TRICUSPID VALVE The tricuspid valve is normal in structure. There is trace tricuspid regurgitation. PULMONIC VALVE The pulmonary valve is normal in structure. There is no pulmonic valvular regurgitation. GREAT VESSELS The aortic root is normal in size. The IVC is normal in size and collapses >50% with inspiration. PERICARDIAL EFFUSION There is a small circumferential pericardial effusion. <Conclusion> There is mild concentric left ventricular hypertrophy. The systolic function is mildly impaired. Significant regional wall motion abnormalities noted. Transmitral Doppler flow pattern is Grade I-abnormal relaxation pattern.
[2019-01-15 16:32] LABS: OSMOLALITY,URINE 390 mosm/kg (300-1000)
--- NOTE | 2019-01-15 17:15 | US ---
HISTORY: Leg pain and swelling. Evaluate for DVT PHYSICIAN(S): Leo Leon MD. TECHNIQUE: Duplex sonography and color-flow Doppler with graded compression were used to evaluate the deep venous systems of both lower extremities. FINDINGS: The visualized deep venous systems of both lower extremities are sonographically normal and compressible. Normal wave forms and augmentation are seen. There is no sonographic evidence for deep venous thrombosis in the visualized segments of both lower extremities. IMPRESSION: No sonographic evidence for deep venous thrombosis in the visualized segments of both lower extremities.
--- NOTE | 2019-01-15 19:29 | HP ---
DATE OF EXAM: 01/15/2019 HISTORY OF PRESENT ILLNESS: The patient is 68-year-old male who had come into the hospital with septic secondary to community-acquired pneumonia. I did review the initial H and P, and I do agree with it. I was involved in the plan of care. The patient has non-ST elevation RI. We will get Cardiology to evaluate the patient. The patient's procalcitonin is elevated. Blood cultures have been ordered and are pending. The patient was seen by ID and continued on IV antibiotics. The patient is placed on Rocephin and Zithromax. We will need to get an echo to evaluate for patient's EF. The patient is on Pletal for peripheral arterial disease. He has hypothyroidism, he is on levothyroxine. He also has acute kidney injury. and will be restarted hydration. The patient will be placed on Ringer's lactate, because of the acute kidney injury. The patient is going to be continued on steroids for his COPD. He is currently in the ICU. I did go over the notes for the resident for today as well and the H and P that was done yesterday. . The patient states he does not wish to stay long in the hospital and he would prefer to leave if he is able to. We will continue him in ICU for now. Ulices Antonio MD
--- NOTE | 2019-01-15 21:35 | CON ---
DATE OF CONSULTATION: 01/15/2019 CARDIOLOGY CONSULTATION REASON FOR DICTATION: Shortness of breath and elevated troponin. HISTORY OF PRESENT ILLNESS: The patient is a 68-year-old male who is a heavy smoker, has a history of hypertension, presents because of shortness of breath after having a sexual intercourse with his . The patient denies any retrosternal chest pain and is unaware of any prior cardiac history. PAST MEDICAL HISTORY: History of peripheral vascular disease, history of leg injury during his [place] service, history of hypertension and hypothyroidism. SOCIAL HISTORY: The patient is a heavy smoker. He smoked one pack per day for most of his life. MEDICATIONS: Zithromax 250 mg intravenously daily, Cozaar 100 mg once a day, albuterol 3 mg inhalation every 4 hours p.r.n., aspirin 81 mg once a day, subcutaneous heparin 5000 units every 8 hours, Pletal 100 mg twice a day, prednisone 40 mg once a day, Rocephin 1 g intravenously daily, Protonix 40 mg once a day, Synthroid 50 mcg once a day, and Toprol-XL 50 mg once a day. REVIEW OF SYSTEMS: No associated diaphoresis. No significant productive cough. No fever or chills. PHYSICAL EXAMINATION: GENERAL: The patient is an elderly male who does not appear to be in acute distress. VITAL SIGNS: Blood pressure 142/83, heart rate 116, temperature 97.8, and respirations 25. HEENT: Normocephalic. CHEST: Bibasal dry crepitations. HEART: S1, S2 regular and distant. ABDOMEN: Soft. EXTREMITIES: No pedal edema. LABORATORY DATA: Today's hemoglobin and hematocrit are 16.8 and 49.7. Today's white count 14.5, platelet count 235,000. Yesterday's white count on admission was 25.2 thousand. SMA-7; sodium 144, potassium 4.6, chloride 109, CO2 of 15, glucose 255, BUN 16, and creatinine 1.9. Troponin was 0.03 and 0.37. A proBNP is 1520. PT, PTT, and INR are within normal limits. Chest x-ray revealed cardiomegaly and diffuse interstitial infiltrate involving the right middle and lower lung zones. EKG reveals sinus tachycardia with fusion beats, right atrial enlargement, right-axis deviation, cannot rule out anterior infarct, age undetermined. ASSESSMENT: 1. Consider [id number] myocardial infarction. 2. Pneumonia. 3. Rule out systolic heart failure. 4. History of peripheral vascular disease. 5. Hypothyroidism. 6. Chronic renal insufficiency. RECOMMENDATIONS: Continue IV Zithromax at 250 mg daily and IV Rocephin 1 g daily. Continue Cozaar 100 mg once a day, albuterol inhaler, and aspirin 81 mg once a day. Continue Pletal 100 mg twice a day. Continue subcutaneous heparin 5000 units every 8 hours and Toprol-XL at 50 mg once a day. Start Lipitor 20 mg once a day. Obtain an echocardiogram, venous Doppler of lower extremities, and urine for drug screen. Cardiac catheterization will be discussed once the patient is more stable from the pulmonary point of view. Js Castanon MD
[2019-01-16] MEDS: Albuterol-Ipratrop 3 mg / 0.5 (3 ml) UD IH SCH ×2 (03:37→07:29)
[2019-01-16 06:50] LABS: HEMOGLOBIN 13.4 g/dL (14.0-18.0); MEAN CELL VOLUME 93.1 fl (80.0-105.0); MEAN CORPUSCULAR HGB CONC 33.3 g/dl (31.0-37.0); MEAN PLATELET VOLUME 10.7 fl (7.0-11.0); RBC 4.32 10^6/uL (3.5-6.1); RED CELL DISTRIBUTION WIDTH 13.2 % (11.5-14.5); WHITE BLOOD COUNT 21.8 10^3/uL (4.5-11.0)
[2019-01-16 06:55] LABS: ALB/GLOB RATIO 1.3 (1.1-1.8); ALBUMIN 4.5 g/dL (3.0-4.8); CALCIUM 9.6 mg/dL (8.4-10.5)
--- NOTE | 2019-01-16 07:04 | CP.PCM.PN ---
<Eliseo Morgan - Last Filed: 01/16/19 15:27> Subjective - Date & Time of Evaluation Date of Evaluation: 01/16/19 Time of Evaluation: 09:15 - Subjective Subjective: Infectious disease progress note: Patient seen and examined at bedside. he is requesting to leave AMA. Pt still complains of some cough. Denies any active chest pain. No fevers. 12 point ROS performed and negative unless stated above. Objective - Vital Signs/Intake and Output Vital Signs (last 24 hours): Temp Pulse Resp BP Pulse Ox 98 F 92 H 24 128/70 88 L 01/15/19 12:00 01/15/19 20:50 01/15/19 20:50 01/15/19 20:30 01/15/19 20:50 - Medications Medications: Current Medications Albuterol/Ipratropium (Duoneb 3 Mg/0.5 Mg (3 Ml) Ud) 3 ml IH Q4H PRN PRN Reason: Shortness of Breath Albuterol/Ipratropium (Duoneb 3 Mg/0.5 Mg (3 Ml) Ud) 3 ml IH [id number] [facility] Last Admin: 01/16/19 03:37 Dose: Not Given Aspirin (Ecotrin) 81 mg PO DAILY [facility] Last Admin: 01/15/19 14:52 Dose: 81 mg Atorvastatin Calcium (Lipitor) 20 mg PO DIN [facility] Last Admin: 01/15/19 18:56 Dose: Not Given Cilostazol (Pletal) 100 mg PO BID [facility] Last Admin: 01/15/19 10:29 Dose: 100 mg Heparin Sodium (Porcine) (Heparin) 5,000 units SC Q8 [facility]; Protocol Last Admin: 01/16/19 05:35 Dose: 5,000 units Azithromycin 250 mg/ Sodium (Chloride) 250 mls @ 167 mls/hr IVPB DAILY [facility]; Protocol Last Admin: 01/15/19 10:28 Dose: 167 mls/hr Ceftriaxone Sodium (Rocephin 1 Gram Ivpb) 1 gm in 100 mls @ 100 mls/hr IVPB DAILY [facility]; Protocol Last Admin: 01/15/19 09:30 Dose: 100 mls/hr Levothyroxine Sodium (Synthroid) 50 mcg PO 0600 [facility] Last Admin: 01/15/19 06:33 Dose: 50 mcg Losartan Potassium (Cozaar) 100 mg PO DAILY [facility] Metoprolol Succinate (Toprol Xl) 50 mg PO DAILY [facility] Last Admin: 01/15/19 10:29 Dose: 50 mg Prednisone (Prednisone Tab) 40 mg PO DAILY [facility] Stop: 01/19/19 11:30 Last Admin: 01/15/19 14:51 Dose: 40 mg - Labs Labs: 01/15/19 07:15 01/16/19 06:15 PT 11.4 SECONDS (9.4-12.5) 01/14/19 23:14 INR 1.03 01/14/19 23:14 APTT 35.0 Seconds (26.9-38.3) 01/14/19 23:14 - Head Exam Head Exam: ATRAUMATIC, NORMOCEPHALIC - Eye Exam Eye Exam: EOMI - Respiratory Exam Respiratory Exam: Clear to Ausculation Bilateral. absent: Rales, Wheezes - Cardiovascular Exam Cardiovascular Exam: REGULAR RHYTHM, +S1, +S2 - GI/Abdominal Exam GI & Abdominal Exam: Soft. absent: Tenderness - Extremities Exam Extremities Exam: absent: Calf Tenderness, Pedal Edema - Neurological Exam Neurological Exam: Alert, Awake - Psychiatric Exam Psychiatric exam: Normal Mood - Skin Skin Exam: Dry, Warm Assessment and Plan - Assessment and Plan (Free Text) Assessment: Severe sepsis secondary to community-acquired pneumonia Non-ST elevation [facility] Acute kidney injury Acute CHF Peripheral vascular disease Hypertension Hyperlipidemia Continue Rocephin and azithromycin day 2 [address] chest shows diffuse interstitial infiltrate of R lung Procal 5.79 Leigonella urine AG - neg Follow-up septic work-up - thus far neg Checks x-ray shows diffuse infiltrate in the right lung consistent with pneumonia Follow-up cardiology recommendations - possible cardiac cath once more stable Continue to monitor for any changes Case and plan to be reviewed and discussed with Dr. Barbour. <Dusty Barbour - Last Filed: 01/16/19 21:25> Objective - Vital Signs/Intake and Output Vital Signs (last 24 hours): Temp Pulse Resp BP Pulse Ox 97.9 F 119 H 28 H 144/96 H 94 L 01/16/19 07:51 01/16/19 08:40 01/16/19 08:40 01/16/19 05:27 01/16/19 04:50 - Labs Labs: 01/16/19 06:15 01/16/19 06:15 PT 11.4 SECONDS (9.4-12.5) 01/14/19 23:14 INR 1.03 01/14/19 23:14 APTT 35.0 Seconds (26.9-38.3) 01/14/19 23:14 Attending/Attestation - Attestation I have personally seen and examined this patient.: Yes I have fully participated in the care of the patient.: Yes I have reviewed all pertinent clinical information, including history, physical exam and plan: Yes
[2019-01-16] MEDS: Levothyroxine 50 MCG TAB PO SCH (07:49)
[2019-01-16 07:52] VITALS: TEMP 97.9
[2019-01-16 07:54] VITALS: BP 144/96; O2SAT 94
[2019-01-16 11:47] VITALS: PULSE 119; RESP 28
--- NOTE | 2019-01-16 12:04 | CP.PCM.DIS ---
<Arriaza,Donnie - Last Filed: 01/16/19 19:39> Provider - Provider Date of Admission: 01/15/19 00:33 Attending physician: Ulices Antonio MD Primary care physician: Alonso Fajardo MD Consults: 01/15/19 00:58 Physician Consult Routine Comment: Consulting Provider: Js Castanon Consulting Physician: Js Castanon Reason for Consult: CHF Physician Consult Routine Comment: Consulting Provider: Alexsander Pascal Consulting Physician: Alexsander Pascal Reason for Consult: CAP Time Spent in preparation of Discharge (in minutes): 40 Diagnosis - Discharge Diagnosis (1) Sepsis Status: Acute (2) NSTEMI (non-ST elevated myocardial infarction) Status: Acute (3) JANEY (acute kidney injury) Status: Acute (4) Pneumonia Status: Acute Hospital Course - Lab Results Lab Results: Micro Results 01/15/19 01:40 Nose MRSA Culture (Admit) - Final MRSA NOT DETECTED 01/15/19 03:50 Urine,[place] Urine Culture - Final No Growth (<1,000 CFU/ML) 01/15/19 00:27 Blood-Venous Blood Culture - Preliminary NO GROWTH AFTER 24 HOURS 01/14/19 23:14 Blood-Venous Blood Culture - Preliminary NO GROWTH AFTER 24 HOURS 01/15/19 09:43 Sputum Gram Stain - Final Most Recent Lab Values WBC 21.8 10^3/uL (4.5-11.0) H D 01/16/19 06:15 RBC 4.32 10^6/uL (3.5-6.1) 01/16/19 06:15 Hgb 13.4 g/dL (14.0-18.0) L D 01/16/19 06:15 Hct 40.2 % (42.0-52.0) L 01/16/19 06:15 MCV 93.1 fl (80.0-105.0) 01/16/19 06:15 MCH 31.0 pg (25.0-35.0) 01/16/19 06:15 MCHC 33.3 g/dl (31.0-37.0) 01/16/19 06:15 RDW 13.2 % (11.5-14.5) 01/16/19 06:15 Plt Count 224 10^3/uL (120.0-450.0) 01/16/19 06:15 MPV 10.7 fl (7.0-11.0) 01/16/19 06:15 Neut % (Auto) 25.5 % (50.0-68.0) L 01/14/19 23:14 Lymph % (Auto) 65.2 % (22.0-35.0) H 01/14/19 23:14 Noble % (Auto) 3.8 % (1.0-6.0) 01/14/19 23:14 Eos % (Auto) 4.8 % (1.5-5.0) 01/14/19 23:14 Baso % (Auto) 0.7 % (0.0-3.0) 01/14/19 23:14 Lymph # (Auto) 16.4 (1.2-3.4) H 01/14/19 23:14 Noble # (Auto) 1.0 (0.1-0.6) H 01/14/19 23:14 Eos # (Auto) 1.2 (0.0-0.7) H 01/14/19 23:14 Baso # (Auto) 0.17 K/mm3 (0.0-2.0) 01/14/19 23:14 Absolute Neuts (auto) 6.45 (1.4-6.5) 01/14/19 23:14 Neutrophils % (Manual) 26 % (50.0-70.0) L 01/14/19 23:14 Band Neutrophils % 2 % (0-2) 01/14/19 23:14 Lymphocytes % (Manual) 60 % (22.0-35.0) H 01/14/19 23:14 Atypical Lymphs % 1 % (0.0-0.0) H 01/14/19 23:14 Monocytes % (Manual) 4 % (1.0-6.0) 01/14/19 23:14 Eosinophils % (Manual) 5 % (0.0-3.0) H 01/14/19 23:14 Basophils % (Manual) 1 % (0.0-1.0) 01/14/19 23:14 Myelocytes % 1 % 01/14/19 23:14 Differential Comment Cancelled 01/14/19 23:14 Platelet Evaluation Normal (NORMAL) 01/14/19 23:14 PT 11.4 SECONDS (9.4-12.5) 01/14/19 23:14 INR 1.03 01/14/19 23:14 APTT 35.0 Seconds (26.9-38.3) 01/14/19 23:14 pCO2 26 mm/Hg (35-45) L 01/15/19 11:49 pO2 96.0 mm/Hg (80-100) 01/15/19 11:49 HCO3 16.1 mmol/L (21-28) L 01/15/19 11:49 ABG pH 7.40 (7.35-7.45) 01/15/19 11:49 ABG Total CO2 16.9 mmol.L (22-28) L 01/15/19 11:49 ABG O2 Saturation 99.2 % (95-98) H 01/15/19 11:49 ABG O2 Content 19.7 ML/dl (15-23) 01/15/19 11:49 ABG Base Excess -6.9 mmol/L (-2.0-3.0) L 01/15/19 11:49 ABG Hemoglobin 14.5 g/dL (11.7-17.4) 01/15/19 11:49 ABG Carboxyhemoglobin 1.9 % (0.5-1.5) H 01/15/19 11:49 POC ABG HHb (Measured) 0.8 % (0-5) 01/15/19 11:49 ABG Methemoglobin 1.0 % (0.0-3.0) 01/15/19 11:49 ABG O2 Capacity 19.9 mL/dl (16-24) 01/15/19 11:49 ABG Potassium 3.0 mmol/L (3.6-5.2) L 01/15/19 03:15 Hgb O2 Saturation 96.2 % (95.0-98.0) 01/15/19 11:49 Sodium 143.0 mmol/L (132-148) 01/15/19 03:15 Chloride 114.0 mmol/L (98-107) H 01/15/19 03:15 Glucose 129 mg/dl (75-110) H 01/15/19 03:15 Lactate 1.4 mmol/L (0.7-2.1) 01/15/19 03:15 FiO2 36.0 % 01/15/19 11:49 Crit Value Called To Dr yoo 01/14/19 23:19 Crit Value Called By [facility] 01/14/19 23:19 Blood Gas Notified Time 232401/14/19 23:19 Sodium 139 mmol/L (132-148) 01/16/19 06:15 Potassium 4.4 mmol/L (3.6-5.0) 01/16/19 06:15 Chloride 107 mmol/L (98-107) 01/16/19 06:15 Carbon Dioxide 17 mmol/L (21-33) L 01/16/19 06:15 Anion Gap 18 (10-20) 01/16/19 06:15 BUN 35 mg/dL (7-21) H 01/16/19 06:15 Creatinine 2.2 mg/dl (0.8-1.5) H 01/16/19 06:15 Est GFR ( Amer) 36 01/16/19 06:15 Est GFR (Non-Af Amer) 30 01/16/19 06:15 Random Glucose 144 mg/dL (70-110) H 01/16/19 06:15 Hemoglobin A1c 5.5 % (4.2-6.5) 01/15/19 07:15 Calcium 9.6 mg/dL (8.4-10.5) 01/16/19 06:15 Phosphorus 3.6 mg/dL (2.5-4.5) 01/16/19 06:15 Magnesium 1.8 mg/dL (1.7-2.2) 01/16/19 06:15 Total Bilirubin 0.9 mg/dL (0.2-1.3) 01/16/19 06:15 AST 40 U/L (17-59) 01/16/19 06:15 ALT 37 U/L (7-56) 01/16/19 06:15 Alkaline Phosphatase 60 U/L (38-126) 01/16/19 06:15 Lactate Dehydrogenase 640 U/L (333-699) 01/14/19 23:14 Total Creatine Kinase 154 U/L (35-230) 01/14/19 23:14 Troponin I 0.33 ng/mL H* 01/15/19 12:00 NT-Pro-B Natriuret Pep 1320 pg/mL (0-450) H 01/14/19 23:14 Total Protein 7.8 g/dL (5.8-8.3) 01/16/19 06:15 Albumin 4.5 g/dL (3.0-4.8) 01/16/19 06:15 Globulin 3.3 gm/dL 01/16/19 06:15 Albumin/Globulin Ratio 1.3 (1.1-1.8) 01/16/19 06:15 Triglycerides 250 mg/dL (35-160) H 01/16/19 06:15 Cholesterol 242 mg/dL (130-200) H 01/16/19 06:15 LDL Cholesterol Direct 164 mg/dL (0-129) H 01/16/19 06:15 HDL Cholesterol 33 mg/dL (29-60) 01/16/19 06:15 Procalcitonin 5.79 NG/ML (0.19-0.49) H 01/15/19 07:15 TSH 3rd Generation 3.14 mIU/mL (0.46-4.68) 01/15/19 07:15 Arterial Blood Potassium 3.0 mmol/L (3.6-5.2) L 01/15/19 03:15 Urine Color Yellow (YELLOW) 01/15/19 03:50 Urine Appearance Sl cloudy (CLEAR) 01/15/19 03:50 Urine pH 6.0 (4.7-8.0) 01/15/19 03:50 Ur Specific [place] 1.020 (1.005-1.035) 01/15/19 03:50 Urine Protein 100 mg/dL (<30 mg/dL) H 01/15/19 03:50 Urine Glucose (UA) Negative mg/dL (NEGATIVE) 01/15/19 03:50 Urine Ketones Negative mg/dL (NEGATIVE) 01/15/19 03:50 Urine Blood Small (NEGATIVE) H 01/15/19 03:50 Urine Nitrate Negative (NEGATIVE) 01/15/19 03:50 Urine Bilirubin Negative (NEGATIVE) 01/15/19 03:50 Urine Urobilinogen 0.2 E.U./dL (<1 E.U./dL) 01/15/19 03:50 Ur Leukocyte Esterase Negative Shantel/uL (NEGATIVE) 01/15/19 03:50 Urine RBC 5 - 10 /hpf (0-2) H 01/15/19 03:50 Urine WBC 0 - 2 /hpf (0-6) 01/15/19 03:50 Ur Epithelial Cells 1 - 3 /hpf (0-5) 01/15/19 03:50 Amorphous Sediment Few /hpf (NONE) 01/15/19 03:50 Urine Bacteria None /hpf (NONE) 01/15/19 03:50 Fine Granular Casts 0 - 2 /hpf (NONE) 01/15/19 03:50 Urine Osmolality 390 mosm/kg (300-1000) 01/15/19 15:23 Ur Random Creatinine 46 mg/dL 01/15/19 11:45 U Random Total Protein 65 mg/L 01/15/19 15:23 Ur Random Sodium 118 meq/L 01/15/19 15:23 Stool Occult Blood Positive (NEGATIVE) H 01/15/19 12:00 Urine Opiates Screen Negative (NEGATIVE) 01/15/19 15:23 Urine Methadone Screen Negative (NEGATIVE) 01/15/19 15:23 Ur Barbiturates Screen Negative (NEGATIVE) 01/15/19 15:23 Ur Phencyclidine Scrn Negative (NEGATIVE) 01/15/19 15:23 Ur Amphetamines Screen Negative (NEGATIVE) 01/15/19 15:23 U Benzodiazepines Scrn Negative (NEGATIVE) 01/15/19 15:23 U Oth Cocaine Metabols Negative (NEGATIVE) 01/15/19 15:23 U Cannabinoids Screen Negative (NEGATIVE) 01/15/19 15:23 Ur L.pneumophila Ag Negative (NEGATIVE) 01/15/19 03:50 - Hospital Course Hospital Course: Donnie Arriaza D.O. PGY-3, Internal Medicine Resident, Dr. Antonio's Service, Progress Note 68-year-old male with a PMH of pneumothorax secondary to trauma with tracheostomy approximately 1 year ago, peripheral vascular disease, hypertension, hypothyroidism who presented for shortness of breath and was found to have a sepsis secondary to CAP. Patient had a chest x-ray which showed diffuse infiltrate in the right lung consistent with pneumonia. Patient had an elevated white blood cell count of 25.2 as well as tachycardia meeting criteria for sepsis. Patient was originally going to telemetry but given his critical nature ICU was consulted and the patient was assessed to ICU. Patient was started on therapy for his community acquired pneumonia with azithromycin and ceftriaxone. Patient improved with BiPAP therapy. Patient had a chest CT which showed diffuse interstitial infiltrate in the right lung and minimal cystic changes seen on the left. Patient also had an extremity ultrasound showing no evidence of deep venous thrombus in the visualized lower extremities. Patient's clinical status slowly was improving however he did have increasing troponins concerning for an NSTEMI likely from his sepsis. Patient also had worsening creatinine suspicious for JANEY also likely secondary to his sepsis. Patient was seen and examined this morning. Patient is adamant that he wants to sign out AGAINST MEDICAL ADVICE. Patient's was present. Patient is fully competent and aware of the potential dangers of not staying for further evaluation and management of his multiple potentially life-threatening conditions. All of this was discussed with him at length. All questions welcomed and answered to the verbal satisfaction of both the patient and the . Discussed with them that although is not ideal, I will call in a prescription for Levaquin 500 mg p.o. daily for the next 7 days. Encouraged highly that the patient follow-up with his primary medical doctor within 1 week, preferably as early as possible may be the of this month which is in 3 days i.e. Saturday. Patient states that he will do so. supported 's decision. Patient signed out AGAINST MEDICAL ADVICE. - Date & Time of H&P Date of H&P: 01/16/19 Time of H&P: 14:00 Discharge Exam - Head Exam Head Exam: ATRAUMATIC, NORMOCEPHALIC - Eye Exam Eye Exam: EOMI. absent: Scleral icterus - ENT Exam ENT Exam: Mucous Membranes Moist, Normal Oropharynx - Neck Exam Neck exam: Normal Inspection - Respiratory Exam Respiratory Exam: Rhonchi - Cardiovascular Exam Cardiovascular Exam: +S1, +S2 - GI/Abdominal Exam GI & Abdominal Exam: Normal Bowel Sounds, Soft. absent: Tenderness - Extremities Exam Extremities exam: normal capillary refill - Neurological Exam Neurological exam: Alert, Oriented x3 - Skin Skin Exam: Dry, Warm Discharge Plan - Follow Up Plan Condition: CRITICAL Disposition: HOME/ ROUTINE Instructions: Heart Failure (ED) Referrals: Alonso Fajardo MD [Primary Care Provider] - <Ulices Antonio - Last Filed: 01/16/19 19:47> Provider - Provider Date of Admission: 01/15/19 00:33 Attending physician: Ulices Antonio MD Primary care physician: Alonso Fajardo MD Consults: 01/15/19 00:58 Physician Consult Routine Comment: Consulting Provider: Js Castanon Consulting Physician: Js Castanon Reason for Consult: CHF Physician Consult Routine Comment: Consulting Provider: Alexsander Pascal Consulting Physician: Alexsander Pascal Reason for Consult: CAP Hospital Course - Lab Results Lab Results: Micro Results 01/15/19 01:40 Nose MRSA Culture (Admit) - Final MRSA NOT DETECTED 01/15/19 03:50 Urine,[place] Urine Culture - Final No Growth (<1,000 CFU/ML) 01/15/19 00:27 Blood-Venous Blood Culture - Preliminary NO GROWTH AFTER 24 HOURS 01/14/19 23:14 Blood-Venous Blood Culture - Preliminary NO GROWTH AFTER 24 HOURS 01/15/19 09:43 Sputum Gram Stain - Final Most Recent Lab Values WBC 21.8 10^3/uL (4.5-11.0) H D 01/16/19 06:15 RBC 4.32 10^6/uL (3.5-6.1) 01/16/19 06:15 Hgb 13.4 g/dL (14.0-18.0) L D 01/16/19 06:15 Hct 40.2 % (42.0-52.0) L 01/16/19 06:15 MCV 93.1 fl (80.0-105.0) 01/16/19 06:15 MCH 31.0 pg (25.0-35.0) 01/16/19 06:15 MCHC 33.3 g/dl (31.0-37.0) 01/16/19 06:15 RDW 13.2 % (11.5-14.5) 01/16/19 06:15 Plt Count 224 10^3/uL (120.0-450.0) 01/16/19 06:15 MPV 10.7 fl (7.0-11.0) 01/16/19 06:15 Neut % (Auto) 25.5 % (50.0-68.0) L 01/14/19 23:14 Lymph % (Auto) 65.2 % (22.0-35.0) H 01/14/19 23:14 Noble % (Auto) 3.8 % (1.0-6.0) 01/14/19 23:14 Eos % (Auto) 4.8 % (1.5-5.0) 01/14/19 23:14 Baso % (Auto) 0.7 % (0.0-3.0) 01/14/19 23:14 Lymph # (Auto) 16.4 (1.2-3.4) H 01/14/19 23:14 Noble # (Auto) 1.0 (0.1-0.6) H 01/14/19 23:14 Eos # (Auto) 1.2 (0.0-0.7) H 01/14/19 23:14 Baso # (Auto) 0.17 K/mm3 (0.0-2.0) 01/14/19 23:14 Absolute Neuts (auto) 6.45 (1.4-6.5) 01/14/19 23:14 Neutrophils % (Manual) 26 % (50.0-70.0) L 01/14/19 23:14 Band Neutrophils % 2 % (0-2) 01/14/19 23:14 Lymphocytes % (Manual) 60 % (22.0-35.0) H 01/14/19 23:14 Atypical Lymphs % 1 % (0.0-0.0) H 01/14/19 23:14 Monocytes % (Manual) 4 % (1.0-6.0) 01/14/19 23:14 Eosinophils % (Manual) 5 % (0.0-3.0) H 01/14/19 23:14 Basophils % (Manual) 1 % (0.0-1.0) 01/14/19 23:14 Myelocytes % 1 % 01/14/19 23:14 Differential Comment Cancelled 01/14/19 23:14 Platelet Evaluation Normal (NORMAL) 01/14/19 23:14 PT 11.4 SECONDS (9.4-12.5) 01/14/19 23:14 INR 1.03 01/14/19 23:14 APTT 35.0 Seconds (26.9-38.3) 01/14/19 23:14 pCO2 26 mm/Hg (35-45) L 01/15/19 11:49 pO2 96.0 mm/Hg (80-100) 01/15/19 11:49 HCO3 16.1 mmol/L (21-28) L 01/15/19 11:49 ABG pH 7.40 (7.35-7.45) 01/15/19 11:49 ABG Total CO2 16.9 mmol.L (22-28) L 01/15/19 11:49 ABG O2 Saturation 99.2 % (95-98) H 01/15/19 11:49 ABG O2 Content 19.7 ML/dl (15-23) 01/15/19 11:49 ABG Base Excess -6.9 mmol/L (-2.0-3.0) L 01/15/19 11:49 ABG Hemoglobin 14.5 g/dL (11.7-17.4) 01/15/19 11:49 ABG Carboxyhemoglobin 1.9 % (0.5-1.5) H 01/15/19 11:49 POC ABG HHb (Measured) 0.8 % (0-5) 01/15/19 11:49 ABG Methemoglobin 1.0 % (0.0-3.0) 01/15/19 11:49 ABG O2 Capacity 19.9 mL/dl (16-24) 01/15/19 11:49 ABG Potassium 3.0 mmol/L (3.6-5.2) L 01/15/19 03:15 Hgb O2 Saturation 96.2 % (95.0-98.0) 01/15/19 11:49 Sodium 143.0 mmol/L (132-148) 01/15/19 03:15 Chloride 114.0 mmol/L (98-107) H 01/15/19 03:15 Glucose 129 mg/dl (75-110) H 01/15/19 03:15 Lactate 1.4 mmol/L (0.7-2.1) 01/15/19 03:15 FiO2 36.0 % 01/15/19 11:49 Crit Value Called To Dr yoo 01/14/19 23:19 [facility] 23:19 Blood Gas Notified Time 232401/14/19 23:19 Sodium 139 mmol/L (132-148) 01/16/19 06:15 Potassium 4.4 mmol/L (3.6-5.0) 01/16/19 06:15 Chloride 107 mmol/L (98-107) 01/16/19 06:15 Carbon Dioxide 17 mmol/L (21-33) L 01/16/19 06:15 Anion Gap 18 (10-20) 01/16/19 06:15 BUN 35 mg/dL (7-21) H 01/16/19 06:15 Creatinine 2.2 mg/dl (0.8-1.5) H 01/16/19 06:15 Est GFR ( Amer) 36 01/16/19 06:15 Est GFR (Non-Af Amer) 30 01/16/19 06:15 Random Glucose 144 mg/dL (70-110) H 01/16/19 06:15 Hemoglobin A1c 5.5 % (4.2-6.5) 01/15/19 07:15 Calcium 9.6 mg/dL (8.4-10.5) 01/16/19 06:15 Phosphorus 3.6 mg/dL (2.5-4.5) 01/16/19 06:15 Magnesium 1.8 mg/dL (1.7-2.2) 01/16/19 06:15 Total Bilirubin 0.9 mg/dL (0.2-1.3) 01/16/19 06:15 AST 40 U/L (17-59) 01/16/19 06:15 ALT 37 U/L (7-56) 01/16/19 06:15 Alkaline Phosphatase 60 U/L (38-126) 01/16/19 06:15 Lactate Dehydrogenase 640 U/L (333-699) 01/14/19 23:14 Total Creatine Kinase 154 U/L (35-230) 01/14/19 23:14 Troponin I 0.33 ng/mL H* 01/15/19 12:00 NT-Pro-B Natriuret Pep 1320 pg/mL (0-450) H 01/14/19 23:14 Total Protein 7.8 g/dL (5.8-8.3) 01/16/19 06:15 Albumin 4.5 g/dL (3.0-4.8) 01/16/19 06:15 Globulin 3.3 gm/dL 01/16/19 06:15 Albumin/Globulin Ratio 1.3 (1.1-1.8) 01/16/19 06:15 Triglycerides 250 mg/dL (35-160) H 01/16/19 06:15 Cholesterol 242 mg/dL (130-200) H 01/16/19 06:15 LDL Cholesterol Direct 164 mg/dL (0-129) H 01/16/19 06:15 HDL Cholesterol 33 mg/dL (29-60) 01/16/19 06:15 Procalcitonin 5.79 NG/ML (0.19-0.49) H 01/15/19 07:15 TSH 3rd Generation 3.14 mIU/mL (0.46-4.68) 01/15/19 07:15 Arterial Blood Potassium 3.0 mmol/L (3.6-5.2) L 01/15/19 03:15 Urine Color Yellow (YELLOW) 01/15/19 03:50 Urine Appearance Sl cloudy (CLEAR) 01/15/19 03:50 Urine pH 6.0 (4.7-8.0) 01/15/19 03:50 Ur Specific [place] 1.020 (1.005-1.035) 01/15/19 03:50 Urine Protein 100 mg/dL (<30 mg/dL) H 01/15/19 03:50 Urine Glucose (UA) Negative mg/dL (NEGATIVE) 01/15/19 03:50 Urine Ketones Negative mg/dL (NEGATIVE) 01/15/19 03:50 Urine Blood Small (NEGATIVE) H 01/15/19 03:50 Urine Nitrate Negative (NEGATIVE) 01/15/19 03:50 Urine Bilirubin Negative (NEGATIVE) 01/15/19 03:50 Urine Urobilinogen 0.2 E.U./dL (<1 E.U./dL) 01/15/19 03:50 Ur Leukocyte Esterase Negative Shantel/uL (NEGATIVE) 01/15/19 03:50 Urine RBC 5 - 10 /hpf (0-2) H 01/15/19 03:50 Urine WBC 0 - 2 /hpf (0-6) 01/15/19 03:50 Ur Epithelial Cells 1 - 3 /hpf (0-5) 01/15/19 03:50 Amorphous Sediment Few /hpf (NONE) 01/15/19 03:50 Urine Bacteria None /hpf (NONE) 01/15/19 03:50 Fine Granular Casts 0 - 2 /hpf (NONE) 01/15/19 03:50 Urine Osmolality 390 mosm/kg (300-1000) 01/15/19 15:23 Ur Random Creatinine 46 mg/dL 01/15/19 11:45 U Random Total Protein 65 mg/L 01/15/19 15:23 Ur Random Sodium 118 meq/L 01/15/19 15:23 Stool Occult Blood Positive (NEGATIVE) H 01/15/19 12:00 Urine Opiates Screen Negative (NEGATIVE) 01/15/19 15:23 Urine Methadone Screen Negative (NEGATIVE) 01/15/19 15:23 Ur Barbiturates Screen Negative (NEGATIVE) 01/15/19 15:23 Ur Phencyclidine Scrn Negative (NEGATIVE) 01/15/19 15:23 Ur Amphetamines Screen Negative (NEGATIVE) 01/15/19 15:23 U Benzodiazepines Scrn Negative (NEGATIVE) 01/15/19 15:23 U Oth Cocaine Metabols Negative (NEGATIVE) 01/15/19 15:23 U Cannabinoids Screen Negative (NEGATIVE) 01/15/19 15:23 Ur L.pneumophila Ag Negative (NEGATIVE) 01/15/19 03:50 - Hospital Course Hospital Course: Pt seen and examined by me. I have reviewed the note of the internist medical doctor md and I agree with it. I have discussed the assessment and plan with the resident. I have reviewed the medications and the last labs.
--- NOTE | 2019-01-16 13:30 | PQF ---
PROVIDER RESPONSE TEXT: Acute systolic heart failure REVIEWER QUERY TEXT: CHF Acuity and Type Congestive Heart Failure is documented in the Medical Record. Please document the type and acuity (in cludes probable or suspected) Such as: Type: -- Systolic -- Diastolic -- Combined -- Other, please specify Acuity: -- Acute -- Chronic -- Acute on chronic -- Other, please specify Also please document the underlying cause of the CHF (includes probable or suspected) The patient's Clinical Indicators include: Query created by: Nisha Wolf on 01/16/2019 11:27 AM Electronically signed by: Js Castanon MD 01/16/2019 1:27 PM
--- NOTE | 2019-01-17 01:17 | DS ---
HOSPITAL COURSE: The patient was seen and examined. I do agree with the note of the medical staff manager. I was involved in the plan of care. The patient states that he wants to go home. He is willing to leave against medical advice. I did advise him that he should not leave and stay in the hospital, as he is not ready. He has a pneumonia, non-ST elevation OR, and acute kidney injury. The patient has a white count that continues to be elevated. He says that he does not want to stay. He understands the risk and prefers if he dies that he would be home. The patient's also spoke with me later in the morning and she also states that he does not wish to stay and she cannot convince him, so she would like for him to be discharged. I did have the resident write for Levaquin for antibiotics to continue for 7 more days. I advised the patient's that she can bring him back to hospital if his symptoms worsened. She said she does understand this. I also advised her to follow with Dr. Fajardo, his primary care doctor. The patient was on Rocephin and azithromycin. He says he is feeling better. He had been on BiPAP therapy. The patient had a CT that showed interstitial infiltration in the right lung. He is going to be discharged home. The patient was seen and examined by me. I do agree with the note of the medical staff manager. I was involved in the plan of care. I did review the patient's medications. Ulices Antonio MD
== END 2019-01-16 09:47 | disposition home or self-care (01) | DRG 871 ==
LOC: ED 22:39 → ERH 01-15 00:33 → CCU 01-15 01:33
PROVIDERS: ADMIT Internal Medicine Nephrology; ATTEND Internal Medicine Nephrology
PROC: 5A09357 Assistance with Respiratory Ventilation, Less than 24 Consecutive Hours, Continuous Positive Airway Pressure (ICD-10-PCS; principal; 2019-01-14)
DX: A41.9 Sepsis, unspecified organism (principal); J18.9 Pneumonia, unspecified organism; I21.4 Non-ST elevation (NSTEMI) myocardial infarction; I50.21 Acute systolic (congestive) heart failure; J44.0 Chronic obstructive pulmonary disease with (acute) lower respiratory infection; E87.4 Mixed disorder of acid-base balance; N17.9 Acute kidney failure, unspecified; I13.0 Hypertensive heart and chronic kidney disease with heart failure and stage 1 through stage 4 chronic kidney disease, or unspecified chronic kidney disease; N18.9 Chronic kidney disease, unspecified; R65.20 Severe sepsis without septic shock; R06.03 Acute respiratory distress; F17.210 Nicotine dependence, cigarettes, uncomplicated; I70.202 Unspecified atherosclerosis of native arteries of extremities, left leg; E03.9 Hypothyroidism, unspecified; E78.5 Hyperlipidemia, unspecified; Z79.02 Long term (current) use of antithrombotics/antiplatelets; Z79.890 Hormone replacement therapy; Z93.0 Tracheostomy status; Z83.3 Family history of diabetes mellitus